=== PATIENT | female | born 1980 | race Caucasian/White ===

== ENCOUNTER → 2017-06-15 12:25 | Outpatient (CLI) | payer OTHER, SELFPAY ==
[2017-06-15 14:30] LABS: M R Staph aureus DNA By PCR Negative (Negative); Probe Check PASS; Specimen Processing Control PASS
== END ==
PROVIDERS: Family Provider Nurse Practitioner; PCP Nurse Practitioner; Visit Provider Nurse Practitioner
DX: S60.511A Abrasion of right hand, initial encounter (principal)
CPT/HCPCS: 87641

== ENCOUNTER → 2017-06-20 09:17 | Outpatient (CLI) | payer OTHER, SELFPAY ==
--- NOTE | 2017-06-20 09:21 | HPBI_ITS ---
MAMMOGRAPHY - BILATERAL DIAGNOSTIC REASON FOR EXAM: Female, 36 years old. Right breast lump at the 12:00 position of the breasts. PERTINENT HISTORY: Non-contributory. TECHNIQUE: Digital bilateral breast kendall (3D mammographic acquisition) in the CC and MLO projections. 2-D mediolateral oblique (MLO) and craniocaudad (CC) views of both breasts were obtained. CAD: Full Field Digital Mammography with Computer Added Detection was performed. COMPARISON: None. Baseline examination. FINDINGS: Breast Composition: The breasts are heterogeneously dense, which may obscure small masses. The palpable abnormality corresponds to a 1.7 cm x 0.9 cm nodular density with calcifications within it. A neoplastic process should be ruled out. Correlation with ultrasound is recommended. No other significant abnormalities are identified. HPBI/DIAG MAMM W/CAD, BILAT IMPRESSION: The palpable lump and a mildly corresponds to a 1.7 cm x 0.9 Dewayne nodule density with calcifications. Ultrasound correlation is recommended. ASSESSMENT CATEGORY: BIRADS Category 0: Incomplete. Need additional imaging evaluation. A letter regarding these results will be sent to the patient by the facility within 30 days. Approximately 10% of breast cancers are not detected by mammography. A normal mammogram should not delay biopsy of a clinically suspicious abnormality. Electronically Signed: Moncho Sandoval MD at 13:39 EST Tel [phone], Service support ,
--- NOTE | 2017-06-20 10:34 | US_ITS ---
STUDY: ULTRASOUND BREAST - RIGHT REASON FOR EXAM: Female, 36 years old. Abnormal screening mammogram. TECHNIQUE: Axial and longitudinal images of the RIGHT breast were performed with a high resolution ultrasound transducer. COMPARISON: Comparison is made with prior mammogram done earlier today. FINDINGS: RIGHT Breast: There is a 7 mm x 8 mm x 7 mm spiculated irregular nodule at the 12:00 breast at 3 cm from the nipple. A biopsy is recommended for further evaluation. There is an 8mm by 8 mm x 5 mm cyst at the 11:00 position breast at 2 cm from nipple. Mild degree of retroareolar ductal dilatation. US/Breast Limited Unilateral IMPRESSION: Suspicious mass at the 12:00 position present 3 cm from nipple as described. A biopsy is recommended. ASSESSMENT CATEGORY: BIRADS Category 5: Highly Suggestive of Malignancy - Appropriate Action Should Be Taken. A letter regarding these results will be sent to the patient by the facility within 30 days. Electronically Signed: Moncho Sandoval MD at 13:48 EST Tel [phone], Service support ,
== END ==
PROVIDERS: Family Provider Nurse Practitioner; PCP Nurse Practitioner; Visit Provider Nurse Practitioner
DX: N63.10 Unspecified lump in the right breast, unspecified quadrant (principal)
CPT/HCPCS: 76642; 77062; 77066; G0279

== ENCOUNTER → 2017-06-25 15:15 | Outpatient (CLI) | payer OTHER, SELFPAY ==
--- NOTE | 2017-06-25 15:16 | CT_ITS ---
STUDY: CT ABDOMEN AND PELVIS WITHOUT CONTRAST REASON FOR EXAM: Female, 36 years old. Left upper quadrant pain RADIATION DOSAGE (If Supplied By Facility): CTDIvol = ( 9.82 ) mGy, DLP = ( 461.03 ) mGycm TECHNIQUE: Transaxial images were obtained from the dome of the diaphragm to the symphysis pubis without oral contrast, and without intravenous contrast. Sagittal and coronal images were reconstructed. Individualized dose optimization techniques were used for this CT. COMPARISON: None. FINDINGS: The visualized lung bases are unremarkable. The visualized portions of the heart are within normal limits. Normal liver. Incompletely contracted thick-walled gallbladder without calcified stones of uncertain significance. If concern for gallbladder disease ultrasound recommended. Normal spleen. Normal pancreas. Normal bilateral adrenal glands. Normal right kidney. Normal left kidney. Normal visualized stomach. Normal small intestine. Diffuse fecal retention noted within the colon.. No evidence for acute appendicitis. Normal abdominal aorta. Normal inferior vena cava. Tiny subcentimeter retroperitoneal nodes likely of no significance. Normal urinary bladder. Minor cystic changes within the adnexa bilaterally not atypical for age Small amount of fluid in the cul-de-sac possibly due to ovulation. Normal abdominal wall. Normal osseous structures. CT/Abdomen/Pelvis without Cont IMPRESSION: Minor cystic changes within the ovaries and fluid in the cul-de-sac likely due to ovulation No significant adenopathy or evidence for splenomegaly. Electronically Signed: Akash Velasquez MD at 20:41 EST , Service support ,
== END ==
PROVIDERS: Family Provider Nurse Practitioner; PCP Nurse Practitioner; Visit Provider Nurse Practitioner
DX: R10.84 Generalized abdominal pain (principal)
CPT/HCPCS: 74176

== ENCOUNTER → 2017-06-27 11:05 | Outpatient (CLI) | payer OTHER, SELFPAY ==
--- NOTE | 2017-06-27 11:10 | US_ITS ---
STUDY: ULTRASOUND BREAST - RIGHT REASON FOR EXAM: Female, 36 years old. Ultrasound guided right breast biopsy. TECHNIQUE: Axial and longitudinal images of the RIGHT breast were performed with a high resolution ultrasound transducer. COMPARISON: Comparison is made with prior sonogram dated June 20, 2017. FINDINGS: RIGHT Breast: The questionable abnormality represents dilated ducts. The biopsy was not performed. US/Breast Limited Unilateral IMPRESSION: The biopsy was not performed. ASSESSMENT CATEGORY: BIRADS Category 2: Benign. A letter regarding these results will be sent to the patient by the facility within 30 days. Electronically Signed: Moncho Sandoval MD at 13:24 EST Tel [phone], Service support ,
== END ==
PROVIDERS: Family Provider Nurse Practitioner; PCP Nurse Practitioner; Visit Provider Surgery
DX: R92.8 Other abnormal and inconclusive findings on diagnostic imaging of breast (principal)
CPT/HCPCS: 76642

== ENCOUNTER → 2017-07-17 12:58 | Outpatient (CLI) | payer OTHER, SELFPAY ==
--- NOTE | 2017-07-17 12:59 | ECHOD_ITS ---
Reason For Study: FATIGUE Procedure This was a 2D Doppler, Color Flow transthoracic echocardiogram. Exam performed in department. Left Ventricle Normal LV size. Left ventricular systolic function is normal. The estimated ejection fraction is 60 %. Normal diastology for age. No regional wall motion abnormalities noted. Right Ventricle Normal RV size. Normal systolic function. Atria Normal left atrium. Normal right atrium. Mitral Valve Normal mitral valve. Tricuspid Valve Normal tricuspid valve. Mild (1+) tricuspid valve insufficiency. Pulmonary artery systolic pressure is 24 mmHg. Aortic Valve Normal aortic valve. Trisinus/trileaflet aortic valve. Pulmonic Valve Normal pulmonic valve. Great Vessels Normal aortic root. The pulmonary artery is normal size. Normal inferior vena cava. Pericardium/Pleural No pericardial effusion. MMode/2D Measurements & Calculations LVIDd: 4.5 cm IVSd: 0.73 cm Ao root diam: 3.1 cm LVIDs: 2.8 cm LVPWd: 0.82 cm LA dimension: 2.5 cm RVDd: 3.5 cm FS: 36.3 % LAV(MOD-bp): 28.0 ml EDV(MOD-sp4): 63.4 ml EDV(MOD-sp2): 105.6 ml LAV(MOD-bp) Indexed: 15.2 ml/m2 ESV(MOD-sp4): 23.1 ml EF(MOD-sp2): 67.7 % LAV(MOD-sp2): 19.9 ml EF(MOD-sp4): 63.5 % LAV(MOD-sp4): 35.0 ml SV(MOD-sp4): 40.2 ml SV(MOD-sp2): 71.5 ml LA A4 area: 14.4 cm2 RA A4 area: 13.3 cm2 Doppler Measurements & Calculations MV E max cayetano: 95.6 cm/sec Ao V2 max: 147.8 cm/sec LV V1 max: 107.1 cm/sec MV A max cyaetano: 43.5 cm/sec Ao max P.7 mmHg LV V1 max P.6 mmHg MV E/A: 2.2 PA V2 max: 106.3 cm/sec TR max cayetano: 222.0 cm/sec TR max P.7 mmHg Interpretation Summary Normal LV size. Left ventricular systolic function is normal. The estimated ejection fraction is 60 %. Normal diastology for age. Structurally normal valves. Ordering Physician: Sammie Chapa Referring Physician: Sammie Chapa Performed By: Breonna Machado, RDCS, RVT
== END ==
PROVIDERS: Family Provider Nurse Practitioner; PCP Nurse Practitioner; Visit Provider Nurse Practitioner
DX: R94.31 Abnormal electrocardiogram [ECG] [EKG] (principal)
CPT/HCPCS: 93306

== ENCOUNTER → 2017-07-20 08:00 | Outpatient (CLI) | payer OTHER, SELFPAY ==
--- NOTE | 2017-07-20 08:03 | US_ITS ---
STUDY: ABDOMINAL ULTRASOUND - RIGHT UPPER QUADRANT REASON FOR VISIT: Female, 37 years old. Six-month history of right upper quadrant pain. TECHNIQUE: Ultrasound evaluation of the right upper quadrant was performed with real-time and static mosley-scale imaging. TECHNICAL QUALITY: Adequate. COMPARISON: None. FINDINGS: Liver: The liver measures 13.5 cm. There is normal echogenicity of the liver. The bile ducts are within normal limits. There is hepatic color flow. The direction of portal flow is hepatopetal. There is no demonstrated mass lesion. Gallbladder: Normal distended gallbladder. The gallbladder wall measures 2.1 mm. There is a negative sonographic Hansen's sign. There is no pericholecystic fluid. There are no gallstones. Common Bile Duct (C.B.D.): The common bile duct measures 4.1 mm. Pancreas: Normal size of the head, body and tail of the pancreas. There is normal echogenicity of the pancreas. There is no demonstrated pancreatic mass or cyst. Right Kidney: Normal size of the right kidney. The right kidney measures 11.4 cm x 5.1 cm x 3.6 cm. Normal renal cortex. The right cortex measures 1.0 cm. There is no demonstrated renal mass or cyst. There is no right hydronephrosis. US/Gallbladder IMPRESSION: Normal right upper quadrant ultrasound examination. Electronically Signed: Moncho Sandoval MD at 13:32 EDT Tel [phone], Service support ,
== END ==
PROVIDERS: Family Provider Nurse Practitioner; PCP Nurse Practitioner; Visit Provider Nurse Practitioner
DX: R10.11 Right upper quadrant pain (principal)
CPT/HCPCS: 76705

== ENCOUNTER → 2017-07-31 09:54 | Outpatient (CLI) | payer OTHER, SELFPAY ==
--- NOTE | 2017-07-31 09:56 | NM_ITS ---
CLINICAL: 37-year-old female with reported history of right upper quadrant abdominal pain and nausea. RADIONUCLIDE HEPATOBILIARY SCINTIGRAPHY COMPARISON: Abdominal ultrasound report 07/20/2016, CT of the abdomen-pelvis report 06/25/2017 FINDINGS: Following the intravenous administration of 5.5 mCi of 99m Tc Mebrofenin, hepatobiliary images reveal: 1. Relatively prompt and homogeneous radiopharmaceutical concentration is noted by a normal sized liver. No parenchymal defects are identified. 2. Gallbladder activity is identified at 15 minutes post radiopharmaceutical administration. 3. Small intestinal tract is observed at 30 minutes following tracer injection. 4. Washout of the radiopharmaceutical by the hepatic parenchyma appears qualitatively normal. Cholecystokinin (0.02 ug/kg) was administered intravenously over a 30-minute period. The post CCK gallbladder ejection fraction calculated at 20 minutes following Cholecystokinin administration was noted to be 79.0 % (normal greater than 35%). During 30 minutes of post CCK imaging, there is no scintigraphic evidence of reflux of the radiotracer into the common hepatic duct or refilling of the gallbladder. NM/Hepatobilliary Imaging IMPRESSION: 1. NORMAL 99m Tc Mebrofenin hepatobiliary imaging examination with Cholecystokinin. A. A gallbladder ejection fraction calculated to be greater than 35% following the administration of Cholecystokinin makes the probability of functional hepatobiliary disease (gallbladder and/or sphincter of Oddi dyskinesia) and/or organic hepatobiliary disease (chronic acalculous cholecystitis and/or cystic duct syndrome) to be low. (Mikel Gutierrez et al, Journal of Nuclear Medicine 32:1695, 1990). Electronically Signed: Eh Doran DO at 10:23 EDT Tel , Service support ,
== END ==
PROVIDERS: Family Provider Nurse Practitioner; PCP Nurse Practitioner; Visit Provider Nurse Practitioner
DX: R10.11 Right upper quadrant pain (principal)
CPT/HCPCS: 78226; A9537; J2805

== ENCOUNTER → 2018-02-20 11:29 | Outpatient (CLI) | payer OTHER, SELFPAY ==
--- NOTE | 2018-02-20 11:35 | CT_ITS ---
STUDY: CT ABDOMEN WITH CONTRAST REASON FOR EXAM: Female, 37 years old. Hepatomegaly. Right upper quadrant and left upper quadrant pain. RADIATION DOSAGE (If Supplied By Facility): CTDIvol = ( 12.63 ) mGy, DLP = ( 476.72 ) mGycm TECHNIQUE: Transaxial images were obtained post I.V. administration of 100 ml of Isovue 300 contrast, and with oral contrast. Sagittal and coronal images were reconstructed. # of Images: 365 Individualized dose optimization techniques were used for this CT. COMPARISON: None. FINDINGS: The visualized lung bases are unremarkable. The visualized portions of the heart are within normal limits. Normal liver. Normal gallbladder and extrahepatic biliary system. Normal spleen. Normal pancreas. Normal bilateral adrenal glands. Normal right kidney. Normal left kidney. Normal visualized stomach. Normal small intestine. Moderate amount of fecal material in the colon. The appendix is visualized and appears normal. Normal abdominal aorta. Normal inferior vena cava. Normal retroperitoneum. Normal abdominal wall. Normal osseous structures. CT/Abdomen WITH IV Contrast IMPRESSION: Moderate amount of fecal material is seen in the colon. Electronically Signed: Moncho Sanodval MD at 14:08 EDT Tel [phone], Service support ,
[2018-02-20 12:07] LABS: Absolute Lymphocyte Count 1.67 X10^3/ul (0.83-4.51); Absolute Neutrophil Count 3.1 X10^3/uL (2.0-7.7); Basophil# 0.02 X10^3/uL; Basophil% 0.4 % (0-1); Eosinophil# 0.13 X10^3/uL; Eosinophils% 2.4 % (0-5); Hemoglobin 13.9 g/dl (12.0-15.0); Lymphocyte # 1.67 X10^3/ul (4.0); Lymphocyte % 30.5 % (19-41); Mean Corp Hgb Conc 33.1 g/gl (32-36); Mean Corpuscular Hgb 31.4 pg (27.0-32.0); Mean Platelet Vol. 11.2 fl (6.2-12.0); Monocyte% 9.1 % (0-10); Neutrophil # 3.14 X10^3/uL (2.7-7.7); Neutrophil % 57.4 % (47-70); Platelet Count 248 K/mm3 (150-450); RBC Distribution Width CV 12.7 % (11.6-14.6); RBC Distribution Width SD 44.1 fl (35.1-43.9); Red Blood Count 4.42 M/mm3 (4.2-5.4); White Blood Count 5.5 K/mm3 (4.4-11.0)
[2018-02-20 12:13] LABS: POSITIVE COUNT NO; POSITIVE DIFFERENTIAL NO; POSITIVE MORPHOLOGY NO
[2018-02-20 12:17] LABS: Erythrocyte Sedimentation Rate 5 mm/hr (0-20)
[2018-02-20 12:35] LABS: ALB/GLOB Ratio 1.2 RATIO (0.9-2.4); AST(SGOT) 10 U/L (15-37); Alanine Aminotransfer ALT/SGPT 19 U/L (13-56); Albumin, Serum 4.1 g/dL (3.2-5.0); Alkaline Phosphatase 57 U/L (45-117); Anion Gap 8 (5-15); BUN 7 mg/dL (7-18); BUN/Creat Ratio 12.1 RATIO (10-20); CRP < 2.90 mg/L (0.0-3.0); Calcium,Total 9.2 mg/dL (8.5-10.1); Chloride 101 mmol/L (98-107); Creatinine, Serum 0.58 mg/dL (0.55-1.02); EST Glomerular Filtration Rate 124 mL/min (>60); Est Glom Filt Rate - Afr Amer 150 mL/min (>60); Globulin 3.4 g/dL (2.2-4.2); Glucose 85 mg/dL (74-106); Potassium 4.6 mmol/L (3.5-5.1); Protein, Total 7.5 g/dL (6.4-8.2); Sodium Level 138 mmol/L (136-145)
[2018-02-21 05:06] LABS: HEPATITIS B SURFACE AG Negative (Negative); Hepatitis A AB, Total Negative (Negative); Hepatitis A IgM Antibody Negative (Negative); Hepatitis B Core AB IgM Negative (Negative); Hepatitis B Core Ab Total Negative (Negative); Hepatitis C Ab <0.1 s/co ratio (0.0-0.9)
[2018-02-21 10:28] LABS: Hep B Surface Antibodies Reactive (.)
== END ==
PROVIDERS: Family Provider Internal Medicine; PCP Internal Medicine; Referring Provider Internal Medicine; Visit Provider Internal Medicine
DX: R16.0 Hepatomegaly, not elsewhere classified (principal); R16.1 Splenomegaly, not elsewhere classified
CPT/HCPCS: 74160; 80053; 85025; 85652; 86140; 86704; 86705; 86706; 86708; 86709; 86803; 87340; Q9967

== ENCOUNTER 2019-05-03 06:50 | Emergency (ER) | payer OTHER, SELFPAY ==
[2019-05-03] VITALS (9 sets, daily range): BP systolic 104–123; BP diastolic 60–79; PULSE 70–97; RESP 12–19; TEMP 36.6; O2SAT 98–100; BMI 29.9
--- NOTE | 2019-05-03 07:10 | ED.DCSUM_ITS ---
History of Present Illness Chief Complaint: Lower Extremity Injury Informant: Patient Onset: Today Mechanism/Context: Fall Quality of Pain: Dull, Aching Location: Left ankle Current Severity: Mild Maximum Severity: Severe Worsened by: Attempt to move ankle Relieved by: Better after immobilization and elevation Associated Symptoms: Loss of function, Inability to ambulate. Negative for: Parasthesias, Weakness, Loss of consciousness Narrative: Patient is a 38-year-old woman who presents with plan inversion mechanism injury and deformity to left ankle. She was placed in a Aircast by paramedics prior to arrival. She denies paresthesia, anesthesia motors. She had alcoholic beverage last evening at 2100. She states she had a sip of water prior to this occurring. She denies head trauma. Denies neck pain. She denies paresthesia, anesthesia motor his upper or lower extremity presently the time of the injury. She denies cardiac respiratory symptoms. Denies GI symptoms. She states she has not seen an orthopedic surgeon in the past. Tetanus Immunization: 5-10 years - Past Medical History (1) No significant past medical history Status: Acute Past Medical History - Allergies and Home Meds Allergies/Adverse Reactions: Allergies sertraline [From Zoloft] Allergy (Mild, Verified 06/22/17 13:08) Unknown Primary Care Physician: Liz Conroy DO [Primary Care Provider] - Prior records reviewed: Yes Lives: Alone Smoking Status: Never smoker Alcohol: Occasional Drugs: None Review of Systems General: Denies: Chills, Fever, Sweats Eyes: Denies: Visual changes - bilaterally, Blurred Vision - bilaterally ENT: Denies: Rhinorrhea, Sore throat Cardiovascular: Denies: Chest pain, Palpitations Respiratory: Denies: Dyspnea, Cough, Dyspnea on exertion Gastrointestinal: Denies: Abdominal pain, Nausea, Vomiting Musculoskeletal: Reports: Swelling, Extremity Pain. Denies: Myalgias, Arthralgias, Neck pain, Back pain Skin: Denies: Rash, Wounds Neurological: Denies: Headache, Weakness, Numbness Hematologic: Denies: Easy bruising, Easy bleeding Allergy: Denies: Uticaria, Swelling of the mouth, Swelling of the tongue Physical Exam Vital Signs/Narrative: Vital Signs Temp Pulse Resp BP Pulse Ox 05/03/19 06:50 97.8 F 85 18 107/68 99 Inital Vital Signs reviewed: Yes General: Well nourished, Well developed Head: Normocephalic, Atraumatic Eyes: Perrl, EOMI. Negative for: Pale conjunctiva, Scleral icterus ENT: TM's clear, No hemotympanum or drainage, No trauma. Negative for: Hemotympanum, Otorrhea, Nasal trauma, Nasal septal hematoma Neck: Nontender, Full ROM. Negative for: Spinal Tenderness Cardiovascular: Regular rate, Regular rhythm, No murmurs, Normal S1, Normal S2 Respiratory: No distress, CTA bilaterally, Chest nontender Abdomen: Soft, Nontender, Nondistended, Normal bowel sounds Back: Nontender. Negative for: CVA Tenderness - Right Extremeties: There is deformity of the left ankle. DP and PT pulses are palpable. There is pain palpation over the lateral and medial malleolus. There is no pain the patient over the proximal tibia or fibular head. There is no pain the patient over the knee. Sensation and motor function are normal. Skin: Normal color, No rash Neurological: Alert, Oriented x3, Cranial nerves II-XII grossly intact, Normal Strength, Normal Sensation Psychological: Normal affect - Glascow Coma Scale Eye Opening: Spontaneous Motor: Obeys Commands Verbal: Oriented Coma Scale Total: 15 Diagnostic/Tx/Re-eval Chest X-Ray - ED: 2 View, Read by ED Physician, - - Subluxation left ankle due to a bimalleolar fracture. 05/03/19 06:56 Ankle min 3 Views [RAD] Stat Postreduction film reveals anatomical reduction. 2 views were obtained. - Medical Decision Making IV was established. Patient initially was administered 4 mg of Zofran. She declined pain medicine. She subsequently is requesting pain medicine. X-ray was ordered to determine extent of injury. Procedures Procedure(s): 1. Deep sedation using propofol. 2. Closed reduction fracture dislocation left ankle. Patient was informed that she has a fracture/dislocation of her left ankle and would require reduction. She was informed that this would best be achieved using IV anesthetic, propofol. She denies allergy to egg products or soy products. She states she was administered propofol when she had a colonoscopy. She has had no prior complications with IV anesthetic. She was given opportunity ask questions. None were asked. She was explained risk benefits using propofol or any IV anesthetic. Procedure time 8 minutes. A total of 150 mg of propofol was administered. The fracture dislocation was reduced by me. Using Ortho-Glass a stirrup/sugar tong and posterior splint was placed. Postreduction x-rays have been ordered. Patient had slight discomfort and required more anesthetic after the reduction. ED Disposition - Plan for ED Patient: Disposition: Home or Assisted Living Diagnosis: Displaced bimalleolar fracture of left lower leg, initial encounter for closed fracture Instructions: FRACTURE, Ankle (General) Prescriptions: Hydrocodone Bitart/Apap 5-325 [Gerber 5MG-325MG] 1 tablet PO Q6H PRN PRN 3 Days #10 tablet PRN Reason: Pain Transmission Status: Received by [id number] Referrals: Liz Conroy DO [Primary Care Provider] - Elie Thompson MD [STAFF PHYSICIAN] - As soon as possible Additional Instructions: Call Dr. Elie Thompson's office to be seen either by Dr. Elie Thompson or counselor aid. You are to put no weight on your left foot. Keep left foot elevated. Elevation means toes above your nose. Apply ice 6-8 times a day 20 to 30 minutes per application.
[2019-05-03] MEDS: Ondansetron 4 MG/2 ML Vial IV (07:12)
[2019-05-03] MEDS: Morphine 4 MG/ML Syringe IV (07:13)
--- NOTE | 2019-05-03 07:15 | RAD_ITS ---
STUDY: X-RAY - LEFT ANKLE REASON FOR EXAM: Female, 38 years old. PAIN, DEFORMITY S/P FALL TECHNIQUE: 3 view(s) of the ankle. COMPARISON: None. FINDINGS: An acute horizontal fracture is present through the origin of the medial malleolus with lateral displacement of the distal fracture fragment by 1.5 cm. An acute oblique fracture of the very distal fibular shaft is also present with displacement of the distal fracture fragment laterally and posterior by 1.23 cm. There is also partial lateral dislocation of the talus in relation to the tibial plafond by 1.34 cm. Normal visualized talus and calcaneus. The visualized subtalar, talonavicular, calcaneocuboid and tarsal articulations are normal. The soft tissues are swollen. RAD/Ankle min 3 Views IMPRESSION: 1. Acute displaced fractures of the medial malleolus and distal fibular shaft. 2. Partial lateral dislocation of the talus in relation to the tibial plafond. Electronically Signed: Finn Fritz MD at 8:24 EST , Service support ,
[2019-05-03] MEDS: Propofol 200 MG/20 ML Vial IV BOLUS (08:33)
--- NOTE | 2019-05-03 08:35 | RAD_ITS ---
STUDY: X-RAY - LEFT ANKLE REASON FOR EXAM: Female, 38 years old. POST REDUCTION TECHNIQUE: 3 view(s) of the ankle. COMPARISON: Initial exam May 03, 2019 at 7:15 FINDINGS: Follow up studies show successful reduction of previously partially dislocated talus. There is now normal alignment at the ankle mortise and syndesmosis. The medial malleolus and distal fibular fracture fragments have also been reduced demonstrating greatly improved alignment. New cast/splint material is also present. RAD/Ankle min 3 Views IMPRESSION: Status post reduction of the distal fibula and medial malleolus fracture fragments and talus Electronically Signed: Finn Fritz MD at 9:03 EST , Service support ,
== END 2019-05-03 09:18 | disposition home or self-care (01) ==
PROVIDERS: Emergency Provider Emergency Medicine; Family Provider Internal Medicine; PCP Internal Medicine
DX: S82.842A Displaced bimalleolar fracture of left lower leg, initial encounter for closed fracture (principal); X50.1XXA Overexertion from prolonged static or awkward postures, initial encounter; Y93.9 Activity, unspecified; Y92.9 Unspecified place or not applicable; Y99.9 Unspecified external cause status; Z79.899 Other long term (current) drug therapy
CPT/HCPCS: 27810; 29515; 73610; 96374; 99285; J7030; A4216; J2405

== ENCOUNTER 2019-05-15 12:21 | Day surgery (SDC) | payer OTHER, SELFPAY ==
[2019-05-03 06:50] VITALS: BMI 29.9
--- NOTE | 2019-05-05 16:50 | RAD_ITS ---
STUDY: X-RAY CHEST REASON FOR EXAM: Female, 38 years old. Preoperative TECHNIQUE: Frontal view of the chest COMPARISON: None. FINDINGS: The lungs are clear. There are no pleural effusions. There is no pneumothorax. The heart is normal in size. The visualized osseous structures are within normal limits. RAD/Chest PA and Lateral IMPRESSION: No acute thoracic pathology. Electronically Signed: Akash Rainey, at 17:14 EST Tel , Service support ,
--- NOTE | 2019-05-05 16:55 | EKG12_ITS ---
Test Reason : PRE-OP Blood Pressure : / mmHG Vent. Rate : 106 BPM Atrial Rate : 106 BPM P-R Int : 120 ms QRS Dur : 076 ms QT Int : 336 ms P-R-T Axes : 070 073 049 degrees QTc Int : 446 ms Sinus tachycardia Possible Left atrial enlargement Borderline ECG Confirmed by TYLER CUEVA, TORI ([id number]), loan expeditor BANDAR MCKEON ([id number]) on 05/08/2019 11:23:14 AM Referred By: Ricky Thompson Confirmed By:TORI SCOTT MD
[2019-05-05 17:32] LABS: Absolute Lymphocyte Count 1.67 X10^3/uL (0.83-4.51); Absolute Neutrophil Count 4.7 X10^3/uL (2.0-7.7); Basophil# 0.03 X10^3/uL; Basophil% 0.4 % (0-1); Eosinophil# 0.16 X10^3/uL; Eosinophils% 2.2 % (0-5); Hematocrit 38.8 % (37-47); Hemoglobin 12.6 g/dL (12.0-15.0); Lymphocyte # 1.67 X10^3/ul (4.0); Lymphocyte % 23.2 % (19-41); Mean Corp Hgb Conc 32.5 g/dL (32-36); Mean Corpuscular Hgb 30.4 pg (27.0-32.0); Mean Corpuscular Volume 93.7 fL (81-99); Mean Platelet Vol. 10.6 fl (6.2-12.0); Monocyte# 0.67 X10^3/uL; Monocyte% 9.3 % (0-10); NRBC Flagged by Analyzer 0 % (0-5); Neutrophil # 4.66 X10^3/uL (2.7-7.7); Neutrophil % 64.6 % (47-70); POSITIVE MORPHOLOGY YES; Platelet Count 277 K/mm3 (150-450); RBC Distribution Width SD 44.1 fl (35.1-43.9); Red Blood Count 4.14 M/mm3 (4.2-5.4); White Blood Count 7.2 K/mm3 (4.4-11.0)
[2019-05-05 17:35] LABS: Prothrombin Time (Protime)PT. 12.8 SECONDS (11.7-14.9)
[2019-05-05 17:36] LABS: Partial Thromboplast Time 25.7 Seconds (24.1-36.2)
[2019-05-05 17:53] LABS: Differential Indicated SCAN CRITERIA MET
[2019-05-05 18:13] LABS: Anion Gap 7 (5-15); BUN 11 mg/dL (7-18); BUN/Creat Ratio 14.5 RATIO (10-20); Calcium,Total 9.1 mg/dL (8.5-10.1); Chloride 106 mmol/L (98-107); Creatinine, Serum 0.76 mg/dL (0.55-1.02); EST Glomerular Filtration Rate 90 mL/min (>60); Est Glom Filt Rate - Afr Amer 109 mL/min (>60); Glucose 103 mg/dL (74-106); Sodium Level 139 mmol/L (136-145)
[2019-05-05 20:01] LABS: Platelet Estimate ADEQUATE (ADEQ); Red Cell Morphology NORM C+C NORMAL (NORM C&C)
[2019-05-15 12:46] VITALS: BP 111/69; PULSE 74; RESP 16; TEMP 36.6; O2SAT 99; BMI 30.7
[2019-05-15 12:50] LABS: Internal QC Validated? YES +Cl - CLEAR BKGD; Pregnancy, Urine Negative Negative
[2019-05-15] MEDS: Lactated Ringers 1,000 ML 100 ML IV ×2 (13:03→15:45)
[2019-05-15] MEDS: Cefazolin 2 GM in 0.9% Normal Saline 100 ML IV (14:32)
[2019-05-15] MEDS: Bupivacaine Mpf 0.5% 30 ML VIAL (14:41)
--- NOTE | 2019-05-15 15:00 | RAD_ITS ---
STUDY: X-RAY - LEFT ANKLE REASON FOR EXAM: Female, 38 years old. ORIF LEFT BIMALLEOLAR FX -- 167.5 SEC OF FLUORO -- 7.12 mGy DOSE TECHNIQUE: 17 intraoperative view(s) of the ankle. COMPARISON: None. FINDINGS: 17 intraoperative films performed as the patient has undergone ORIF of a bimalleolar fracture. Where is intact and free of postoperative complication. Alignment at the fracture sites is anatomic. RAD/Ankle min 3 Views IMPRESSION: Intraoperative films of bimalleolar ORIF. No intraoperative complications. Follow-up recommended to ensure osseous seen in Electronically Signed: Garcia Molina MD at 17:11 EST , Service support ,
[2019-05-15 17:01] VITALS: BP 104/54; BP 111/69; PULSE 88; RESP 16; TEMP 37.2; O2SAT 94
--- NOTE | 2019-05-15 17:12 | DCINST_ITS ---
Discharge Diet: No Restrictions Discharge Activity: May Not Drive, May Not Shower, Use Walker, Use Crutches Weight Bearing Status: No weight bearing Keep extremity elevated above heart level: Left Leg Call your doctor if your incision/area has: Increased Pain/ Swelling Call your doctor if you observe: Fever of 101 or Higher, Shortness of breath, Chest pain, Increased palpitations (irregular heartbeat), Calf discomfort, Uncontrolled pain Cleanse incision/area with: Keep Dressing Clean & Dry Additional Dressing/Incision Instructions:: Keep dressing to left leg clean, dry, intact. Do not get dressing wet. If get dressing wet, call office immediately for dressing change. Elevate left foot above the level of the heart at all times. Ice behind left knee 20 minutes on, 20 minutes off every hour while awake until follow-up appointment. No walking or standing on left foot. Use crutches or walker for assistance. Begin taking doxycycline and aspirin on May 16, 2019 as instructed. Begin taking Percocet at night of May 15, 2019. After first dose of Percocet, wait 3 hours and take ibuprofen 800 mg. After first dose of ibuprofen, wait another 3 hours to take another dose of Percocet. Alternate between these medications every 3 hours as needed Allergies/Adverse Reactions: Allergies sertraline [From Zoloft] Allergy (Mild, Verified 05/15/19 12:30) Unknown Medications to take at Discharge Duloxetine Hcl [Cymbalta] 30 mg PO DAILY 05/03/19 Naltrexone HCl 25 mg PO BID 05/03/19 Spironolactone 50 mg PO DAILY 05/03/19 Oxycodone HCl/Acetaminophen [Percocet 5-325 mg Tablet] 1 ea PO Q4H PRN PRN 05/08/19 Ropinirole HCl [Requip] 0.5 tab PO QHS 05/08/19 Primary Care Physician: Liz Conroy DO [Primary Care Provider] - Test Results: Test results from this visit will be discussed in further detail at your follow- up appointment, if applicable. Please Follow Up With: Ricky Thompson DPM When: 1 week Proposed Discharge Date: 05/15/19
[2019-05-15 17:15] VITALS: BP 107/67; BP 111/69; PULSE 86; RESP 16; O2SAT 95
--- NOTE | 2019-05-15 17:15 | PCM.OPRPT ---
Problem List (1) Closed bimalleolar fracture of left ankle Status: Acute Qualifiers: Encounter type: subsequent encounter Fracture healing: with routine healing Qualified Code(s): S82.842D - Displaced bimalleolar fracture of left lower leg, subsequent encounter for closed fracture with routine healing (2) Dislocation of left ankle joint Status: Acute Qualifiers: Encounter type: subsequent encounter Qualified Code(s): S93.05XD - Dislocation of left ankle joint, subsequent encounter Report of Operation Date of Procedure: 05/15/19 Pre-Operative Diagnosis: 1. left ankle bimalleolar fracture, closed. #2 left ankle joint dislocation Post-Operative Diagnosis: Same as preoperative Surgery/Procedure Performed:: 1. Open reduction with internal fixation of left lateral malleolus. #2 open reduction with internal fixation of the left medial malleolus #3 reduction of ankle joint dislocation Description of Surgical Findings:: Consistent with diagnosis. Reduction of deformities achieved and held with internal fixation. radiation control technician: Annamarie Roman Type of Anesthesia:: General/Supplemental - with popliteal/saphenous block to left lower extremity Anesthesiologist: Adrian Dooley Special Medications: 2 g of Ancef given preoperatively Specimen's removed: None Drains: None Estimated Blood Loss (mL): 10 Description of Procedure: Pathology: None Anesthesia: General with a popliteal and saphenous block to the left lower extremity Hemostasis: Pneumatic thigh tourniquet placed to level left thigh at 300 mmHg for 90 minutes Estimated blood loss: Less than 10 mL Materials: #1 Maximo distal lateral fibula plate 4-hole. #2 [place] 4.0 x 40 mm partially-threaded screw. #3 [place] 4.0 x 46 mm partially-threaded screw. #4 [place] 3.5 x 12 mm locking screw #5 Maximo 3.5 x 14 mm locking screw x2. #6 [place] 3.5 x 12 mm nonlocking screw x2. #7 Maximo 3.5 x 14 mm nonlocking screw #8 Maximo 2.7 x 18 mm nonlocking screw #9 Maximo 2.7 x 22 mm nonlocking screw. #10 size 0 Vicryl. #11 size 2-0 Vicryl. #12 size 3-0 Vicryl. #13 size 3-0 nylon Injectables: None Complications: None Condition: stable Indications: Patient is a 38-year-old female who suffered a slip and fall while at home on May 03, 2019. Patient noticed immediate pain and deformity of her left ankle. Patient reported to the emergency department for further evaluation. At that time, she was diagnosed with an ankle fracture after x-rays were reviewed. She was closed reduced and was splinted. She was instructed to remain nonweightbearing and was sent for follow-up. Patient subsequently saw me in the office on May 05. At that time, the posterior splint was removed and revealed significant edema of the left foot and ankle. Furthermore, a lesion on the posterior aspect of the Achilles tendon of the left ankle and on the lateral aspect of the left calf were present. Upon verbal questioning, patient states that these were scratches from after her fall. I discussed with the patient conservative and surgical interventions. Due to her deformity of her left ankle and her activities of daily living, I recommended surgical intervention for a faster return to healing. Patient was agreeable to surgical intervention. I instructed the patient that we would have to wait at least 1 week to allow the swelling to decrease in her left ankle and for the lesions that were present to heal. Patient was instructed on strict nonweightbearing, ice, and elevation. Patient return to my office on May 12 for an edema check. There was a significant reduction in edema noted of her left ankle and skin lines were present. Furthermore, the lesions were noted to show good signs of healing. It was then determined the time the surgical dimension will be performed on May 15, 2019. Operative report: Before the patient was brought to the operating room, the risks, benefits, possible outcomes, possible complications of the procedure discussed with the patient. All the patient questions were answered to her satisfaction and all of her concerns were addressed. No guarantees were made as to the outcome of the procedure. The patient understood all aspects of the procedure, and consent was then signed by the patient. Before the patient was brought to the operating room, the anesthesiology team administered a popliteal and saphenous block to the left lower extremity. Patient was then brought into the operating room and placed on the operating table in supine position. After timeout, general anesthesia was obtained by the anesthesiologist and the airway was controlled by the anesthesiologist. A well-padded pneumatic thigh tourniquet was placed at the level of the left thigh. The left foot, ankle, leg were then scrubbed, prepped, draped in the usual sterile manner. Radiographic evaluation was performed of the left ankle to determine the level of the distal tip of the lateral malleolus, the level of the fracture of the lateral malleolus, distal tip of the medial malleolus, and level of the medial malleolar fracture. These were then marked on the patient. Next, the left lower extremity was elevated and exsanguinated via Esmarch and inflation pneumatic thigh tourniquet was performed to 300 mmHg. Attention was then turned to the lateral aspect of the lateral malleolus of the left ankle. At this time, #15 blade was used to perform an incision starting the distal tip of the lateral malleolus extending distally to the lateral aspect of the distal one third of the fibular shaft. This incision was deepened utilizing sharp and blunt dissection. Care was taken to retract all vital neural and vascular structures. All bleeders were cauterized and ligated as necessary. Next a linear periosteal capsular incision was made in line with the original skin incision. The periosteal and capsular structures were then reflected anteriorly and posteriorly, thus exposing the fibula and the fracture fragments of the operative site. At this time, a curette was used to remove any fibrous tissue contained within the fracture fragment site. The surgical site was then irrigated with copious amounts normal sterile saline. Next, the fracture fragments were reduced via temporary fixation. Radiographic evaluation was then performed and the fibula was noted to be out to length. Furthermore, the fibula was noted to be reduced back into anatomical position. Due to the length of the fracture, it was determined that 2 interfragmentary screws would assist in reducing this fracture. At this time, a Maximo 2.7 nonlocking screw was placed from an anterior superior to inferior posterior angle across the fracture fragment of the lateral malleolus. Care was taken to make sure that the screw was as perpendicular to the fracture site as possible. This screw was inserted in standard AO fixation. Of note during insertion of the screw was adequate compression of the fracture fragments. Furthermore, no shifting any of the fragments occurred during insertion of the screw. Once the screw was fully inserted, it was determined that a second interfragmentary screw would help stabilize this fracture. The second interfragmentary screw was placed just distal to the first in a similar angle and similar fashion to that of the first screw. This screw was noted to aid the first interfragmentary screw and reduction of the fracture. Once both screws were fully inserted, all temporary fixation was then removed. Radiographic evaluation was then performed. The interfragmentary screws noted to hold the fibula in the corrected reduced position. Furthermore, the fibula was noted to be out the length. At this time, the Maximo lateral distal 4 hole fibular plate was placed over the lateral aspect of the fibula and held via temporary fixation. Radiograph evaluation was then performed until adequate position was obtained of the plate. Once this was obtained, this was held via a mixture of nonlocking and locking screws. Of note during insertion of the screws was adequate compression of the plate to the bone. Furthermore, no shifting any of the fragments occurred during insertion of the screws. Once 3 screws proximal to the fracture and 3 screws distal to the fracture were fixed into the plate, radiographic evaluation was then performed. The plate was noted to aid the interfragmentary screws and holding the fibula in the correct the reduced position. At this time the surgical site was then irrigated with copious amounts of normal sterile saline. The periosteal and capsular structures were reapproximated coapted utilizing size 0 Vicryl. Subcutaneous tissue was reapproximated and coapted utilizing size 2-0 Vicryl. The skin was reapproximated coapted utilizing size 3-0 nylon in a horizontal mattress and simple interrupted fashion. Attention was then directed to the medial malleolus of the left ankle. At this time, a #15 blade was used to perform a curvilinear incision starting on the medial aspect of the midportion of the medial malleolus extending distally and anteriorly to the distal tip of the medial malleolus. This incision was deepened utilizing sharp and blunt dissection. Care was taken to retract all vital neural and vascular structures. All bleeders were cauterized and ligated as necessary. At this time, the medial malleolar fracture was reduced and held via temporary fixation. Radiograph evaluation was then performed and the medial malleolus was noted to be back into anatomic position. Next, the K wire for the 4.0 screw was placed from the inferior aspect of the medial malleolus extending distally and laterally into the midportion of the tibia. Radiograph evaluation was then performed and this K wire was noted to be held within the medullary canal of the medial malleolus and tibia. Next,, a second K wire was placed parallel to this just anterior to this first K wire. These K wire was then measured, and [place] 4.0 partially-threaded screws were placed over each K wire in standard AO fixation. Of note during insertion of the screws with adequate compression of the medial malleolus fracture. Furthermore, no shifting any of the fragments occurred during insertion of the screws. Once the screws were fully inserted, all K wires and temporary fixation was then removed to the medial malleolus. Radiograph evaluation was then performed. The medial malleolus screws noted to hold the medial malleolus in the correct the reduced position. The surgical site was then irrigated with copious amounts normal sterile saline. The periosteal capsular structures were reapproximated and coapted utilizing 2-0 Vicryl. The subcutaneous tissue was reapproximated and coapted utilizing 3-0 Vicryl. The skin was reapproximated and coapted utilizing 3-0 nylon in a simple interrupted horizontal mattress fashion. At this time, the pneumatic thigh tourniquet was then released and a prompt hyperemic response noted to the entirety of the left lower extremity. At this time, the lesions that were noted on the posterior aspect of the left Achilles and on the lateral aspect of the left calf were dressed with Xeroform. The surgical sites were then dressed with Betadine soaked gauze, and a dry sterile dressing consisting of 4 x 4 gauze wrapped with Kerlix. The left foot and ankle were then wrapped in Andreas bandage. Next a stockinette was placed of the left lower extremity for the metatarsal heads extending to the tibial tuberosity. Cast padding was wrapped from the metatarsal heads extending proximally to level just distal to the tibial tuberosity. A posterior splint was fashioned to the left lower extremity and was adhered to the left lower extremity utilizing Andreas bandages. Care was taken make sure that the foot and ankle held in neutral position as the posterior splint dried. The patient tolerated the anesthesia of the procedure well and was transported to the PACU with vital signs stable and neurovascular status intact to the left lower extremity. After a period of postoperative monitoring, patient will be discharged home with written and oral instructions for wound care and follow-up. The surgical tech, the nurse practitioner, was utilized throughout the entire procedure. She helped with patient positioning, holding of limb, holding of retractors. She helped with exposure throughout. She helped with wound closure, bandage application, and cast application. Without the surgical tech, surgical time would have been increased. Surgical outcome could have been less optimal. - Admit VTE Documentation VTE Present on Admission: No
--- NOTE | 2019-05-15 17:20 | RAD_ITS ---
STUDY: X-RAY - LEFT ANKLE REASON FOR EXAM: Female, 38 years old. POST OP LEFT ORIF TECHNIQUE: 3 view(s) of the ankle. COMPARISON: None. FINDINGS: No acute fracture or dislocation. Compression plate and screws seen across the distal fibula. 2. Screws are seen through the medial malleolus fracture. Fractures are in anatomic alignment and position. Normal ankle mortise. Normal visualized talus and calcaneus. The visualized subtalar, talonavicular, calcaneocuboid and tarsal articulations are normal. The soft tissue structures are unremarkable. RAD/Ankle min 3 Views IMPRESSION: Status post ORIF distal fibular and and medial malleolar fractures which are in anatomic alignment and position. Electronically Signed: Jonas Steward MD at 17:50 EST , Service support ,
[2019-05-15 17:31] VITALS: BP 108/69; BP 111/69; PULSE 97; RESP 18; TEMP 36.8; O2SAT 100
[2019-05-15] MEDS: Ibuprofen 400 MG Tablet 800 MG PO (17:52)
[2019-05-15] MEDS: HYDROcodone Bitartrate/Apap 5/325 Tablet PO (18:46)
[2019-05-15 19:14] VITALS: BP 103/73; BP 111/69; PULSE 82; RESP 18; TEMP 36.4; O2SAT 100
== END 2019-05-15 19:35 | disposition home or self-care (01) ==
LOC: SDC 12:23 → AC 12:24
PROVIDERS: Anesthesiology; Family Provider Internal Medicine; PCP Internal Medicine; Referring Provider Podiatrist Foot & Ankle Surgery; Visit Provider Podiatrist Foot & Ankle Surgery
DX: S82.842D Displaced bimalleolar fracture of left lower leg, subsequent encounter for closed fracture with routine healing (principal); S93.05XD Dislocation of left ankle joint, subsequent encounter; S93.492D Sprain of other ligament of left ankle, subsequent encounter; W01.0XXD Fall on same level from slipping, tripping and stumbling without subsequent striking against object, subsequent encounter; M79.7 Fibromyalgia; F32.9 Major depressive disorder, single episode, unspecified
CPT/HCPCS: 27814; 36415; 71046; 73610; 76000; 80048; 81025; 85025; 85610; 85730; 93005; C1713; J7120; J2405

== ENCOUNTER → 2020-09-01 15:20 | Outpatient (CLI) | payer OTHER, SELFPAY ==
[2020-09-01 14:44] VITALS: BMI 32.8
[2020-09-01 16:36] LABS: HIV - WCH Non-Reactive (Nonreactive); Syphilis Antibodies Non-reactive
[2020-09-03 20:08] LABS: HCV Quant. RNA PCR HCV Not Detected IU/mL (.)
[2020-09-03 20:24] LABS: HSV 1 IgG < 0.91 index (0.00-0.90); HSV 2 IgG < 0.91 index (0.00-0.90)
[2020-09-04 04:09] LABS: Chlamydia By Nucleic Acid AMP Negative (Negative)
[2020-09-04 07:25] LABS: Gonococcus By Nucleic Acid AMP Negative (Negative)
[2020-09-07 10:45] LABS: HPV APTIMA, High Risk Negative (Negative)
== END ==
PROVIDERS: PCP Nurse Practitioner; Referring Provider Nurse Practitioner Women's Health; Visit Provider Nurse Practitioner Women's Health
DX: Z12.4 Encounter for screening for malignant neoplasm of cervix (principal); Z11.3 Encounter for screening for infections with a predominantly sexual mode of transmission
CPT/HCPCS: 36415; 86695; 86696; 86703; 86780; 87491; 87522; 87591; 87624; 88175; G0145

== ENCOUNTER → 2020-12-14 15:46 | Outpatient (CLI) | payer OTHER, SELFPAY ==
[2020-09-01 14:44] VITALS: BMI 32.8
--- NOTE | 2020-12-14 15:47 | BI_ITS ---
MAMMOGRAPHY - BILATERAL SCREENING REASON FOR EXAM: Female, 40 years old. Routine annual screening examination. PERTINENT HISTORY: Non-contributory. Prior right breast biopsy. TECHNIQUE: Digital bilateral breast yordy (3D mammographic acquisition) in the CC and MLO projections. 2-D mediolateral oblique (MLO) and craniocaudad (CC) views of both breasts were obtained. CAD: Full Field Digital Mammography with Computer Added Detection was performed. COMPARISON: Comparison is made with mammogram dated 06/20/2017. FINDINGS: Breast Composition: The breasts are heterogeneously dense, which may obscure small masses. There are no dominant masses or suspicious calcifications. A tissue clip marker is seen in the anterior slightly upper lateral portion of the right breast and compared with prior biopsy. There is a 3.6 mm x 2.6 mm well-defined nodule in the central lateral aspect of the right breast. No other significant abnormalities are identified. There has been no significant change since the prior study. BI/SCRN MAMM (CAD)W/YORDY BILAT IMPRESSION: Stable bilateral screening mammogram. Yearly follow-up mammogram recommended. (A) ASSESSMENT CATEGORY: BIRADS Category 2: Benign. A letter regarding these results will be sent to the patient by the facility within 30 days. Approximately 10% of breast cancers are not detected by mammography. A normal mammogram should not delay biopsy of a clinically suspicious abnormality. [id number] Electronically Signed: Moncho Sandoval MD at 8:16 EDT , Service support ,
== END ==
PROVIDERS: PCP Nurse Practitioner; Referring Provider Nurse Practitioner Women's Health; Visit Provider Nurse Practitioner Women's Health
DX: Z12.31 Encounter for screening mammogram for malignant neoplasm of breast (principal)
CPT/HCPCS: 77063; 77067

== ENCOUNTER 2021-11-20 09:53 | Emergency (ER) | payer BC, SELFPAY ==
[2021-11-20 09:54] VITALS: BP 113/79; PULSE 88; RESP 14; TEMP 37; O2SAT 98; BMI 35.5
--- NOTE | 2021-11-20 10:10 | ED.RN ---
PT STATES PICC LINE WOULD NOT FLUSH MECHANICAL APPRENTICE. THIS RN WAS SUCCESSFULLY ABLE TO FLUSH BOTH LINES WITH NO TROUBLE AND THERE WAS BLOOD RETURN
--- NOTE | 2021-11-20 10:35 | EX.ED.DYSGE1 ---
HPI History of Present Illness Chief Complaint: General Illness Onset/Context/Timing Onset: Today Current Severity: Mild Maximum Severity: Mild Narrative Narrative: 41-year-old female diagnosed with Lyme disease. Had a PICC line placed in her right arm on Sunday at [facility]. She does home infusions. When she tried it do her infusion it would not go through she thought there was backflow of blood. She came in to have it evaluated. Prior similar symptoms: No Recent Illness/Hospitalization: No PFSH PFS Medical History abdominal pain Anxiety Breast mass, right Depression Fibromyalgia Hx of abnormal cervical Pap smear IBS (irritable bowel syndrome) Migraines Migraines Home Medications ropinirole 0.25 mg tablet 0.5 tab PO QHS restless legs 05/08/19 [History Last Taken Unknown] cholecalciferol (vitamin D3) 50 mcg (2,000 unit) capsule 50 mcg PO DAILY 09/01/20 [History Last Taken Unknown] levonorgestrel 0.15 mg-ethinyl estradiol 0.03 mg tablet 1 tab PO DAILY #28 tabs 09/01/20 [Rx Last Taken Unknown] budesonide 32 mcg/actuation nasal spray 1 spray intranasal DAILY 04/07/21 [History Last Taken Unknown] magnesium 200 mg tablet 100 mg PO DAILY 04/07/21 [History Last Taken Unknown] multivitamin 1 tab PO DAILY 04/07/21 [History Last Taken Unknown] naltrexone 50 mg tablet 4.5 mg PO DAILY 04/07/21 [History Last Taken Unknown] spironolactone 25 mg tablet (Aldactone) 25 mg PO DAILY 04/07/21 [History Last Taken Unknown] carisoprodol 350 mg tablet 350 mg PO QHS 06/27/21 [History Last Taken Unknown] duloxetine 30 mg capsule,delayed release 30 mg PO DAILY fibromyalgia 06/27/21 [History Last Taken Unknown] ondansetron HCl 4 mg tablet 4 mg PO TID PRN nausea and vomiting #90 tabs 06/27/21 [Rx Last Taken Unknown] topiramate 25 mg tablet 25 mg PO QHS 30 days #30 tabs 06/27/21 [Rx Last Taken Unknown] ubrogepant 100 mg tablet (Ubrelvy) 100 mg PO DAILY PRN headache #10 tabs 06/27/21 [Rx Last Taken Unknown] Allergy/AdvReac Type Severity Reaction Status Date / Time sertraline [From Zoloft] Allergy Unknown Unknown Verified 11/20/21 09:56 Surgical History H/O eye surgery H/O wisdom tooth extraction History of ankle surgery Social History adopted: Yes household members: none number of children: 0 current occupational status: employed current occupation: [employer] history of recent travel: No sexually active: Yes Smoking Status: Never smoker Electronic Cigarette Use: not used second hand exposure: No alcohol intake: current alcohol intake frequency: a few times a month substance use type: does not use diet: gluten free and lactose free what type of physical activity do you participate in: walking and yoga seatbelt use: always do you feel safe at home: Yes additional social history: single ROS ROS ED ROS Narrative Denies. Review of Systems ROS Unobtainable: Denies due to encephalopathy Constitutional Constitutional ED: Denies chills Eyes Eyes: Denies blurry vision ENT ENT ED: Denies ear pain Cardiovascular Cardiovascular: Denies chest pain Respiratory/Chest Respiratory/Chest: Denies cough Gastrointestinal Gastrointestinal: Reports diarrhea; Denies abdominal pain Genitourinary Genitourinary ED: Denies dysuria Musculoskeletal Musculoskeletal: Denies arthralgias Integumentary Denies abscess Neurologic Neurologic: Denies headache(s) Psychiatric Psychiatric: Denies anxiety Endocrine Endocrinology: Denies cold intolerance Hematologic/Lymphatic Hematologic/Lymphatic: Reports none Allergic/Immunologic Allergic/Immunologic ED: Denies mouth swelling or tongue swelling EXAM Physical Exam Narrative Exam Narrative: 41-year-old female no acute distress. Exam benign. Right arm PICC line. No swelling. Nurse was able to flush the PICC line. No axillary lymphadenopathy. Right hand neurovascularly intact with normal radial pulse and operating room manager strength. Otherwise exam normal. Const Vital Signs: 11/20/21 09:54 Temperature 98.6 F Temperature Source Temporal Pulse Rate 88 Respiratory Rate 14 Blood Pressure 113/79 Blood Pressure Mean 90 Pulse Ox 98 Oxygen Delivery Method Room Air Positive well nourished and well developed; Negative for cachectic, contractures or unkempt General Appearance ED: well developed; Negative for unkempt, cachectic or contractures Nutritional Appearance: Negative for cachectic HEENT Reports moist mucous membranes Negative for trauma or tenderness Eyes PERRL and EOMs intact bilaterally General Eye ED: Negative for pale conjunctiva or scleral icterus Neck no lymphadenopathy, supple and no JVD Lymph Lymphatic: Negative for other Chest Wall inspection of chest normal and palpation of chest normal Resp normal respiratory effort and clear to auscultation bilaterally Effort and Inspection: Negative for retractions Auscultation: Negative for rales, rhonchi or wheezes Cardio regular rate, regular rhythm, S1 normal heart sound, S2 normal heart sound and no murmurs GI normal to inspection, nondistended, normoactive bowel sounds, non-tender, non-distended and no masses Inspection: Negative for abdominal distention Auscultation: normoactive bowel sounds Palpation: soft; Negative for tender Extremity normal to inspection Extremity Narrative: Right arm PICC line. No swelling. No edema. No ice or lymphadenopathy. Right hand is neurovascularly intact. Neuro oriented x3 Sensorium / Orientation: alert Motor Exam: strength 5/5 throughout Psych Appearance: Negative for unkempt Attitude: No agitated Mood & Affect: Negative for depressed Skin no rashes or lesions noted and no wounds MDM MDM MDM Narrative Medical decision making narrative: Patient with an occluded PICC line at home that the nurses were able to flush here. She will be discharged home. She needs no testing. Discharge Plan Triage Chief Complaint: General Illness ED Provider: Francis Long Dx/Rx/DC Orders Clinical Impression: Occluded PICC line, History of Lyme disease Prescriptions: No Action cholecalciferol (vitamin D3) 50 mcg (2,000 unit) capsule 50 mcg PO DAILY levonorgestrel-ethinyl estrad 0.15-0.03 mg tablet 1 tab PO DAILY Qty: 28 3RF budesonide 32 mcg/actuation spray,non-aerosol 1 spray intranasal DAILY spironolactone [Aldactone] 25 mg tablet 25 mg PO DAILY naltrexone 50 mg tablet 4.5 mg PO DAILY magnesium 200 mg tablet 100 mg PO DAILY multivitamin Tablet 1 tab PO DAILY ondansetron HCl 4 mg tablet 4 mg PO TID PRN (Reason: nausea and vomiting) Qty: 90 4RF Ubrelvy 100 mg tablet 100 mg PO DAILY PRN (Reason: headache) Qty: 10 4RF duloxetine 30 mg capsule,delayed release(DR/EC) 30 mg PO DAILY topiramate 25 mg tablet 25 mg PO QHS 30 Days Qty: 30 4RF carisoprodol 350 mg tablet 350 mg PO QHS ropinirole 0.25 MG tablet 0.5 tab PO QHS Primary Care Provider: Sammie Chapa NP Referrals: Sammie Chapa NP, NEUROPHYSIOLOGICAL TECHNICIAN-C [Primary Care Provider] - Activity Restrictions/Additional Instructions: Follow-up with your primary care provider as needed. Further PICC line problems follow-up with all movement was placed for return. Disposition Disposition: Home, Self Care
== END 2021-11-20 10:56 | disposition home or self-care (01) ==
LOC: ED 10:52
PROVIDERS: Emergency Provider Emergency Medicine; PCP Internal Medicine; Visit Provider Emergency Medicine
DX: T82.594A Other mechanical complication of infusion catheter, initial encounter (principal); A69.20 Lyme disease, unspecified; F41.9 Anxiety disorder, unspecified; F32.A Depression, unspecified
CPT/HCPCS: 99282; A4216

== ENCOUNTER → 2022-01-23 | Outpatient (CLI) | payer BC, SELFPAY | END | disposition home or self-care (01) | LOC: MEDOUTP 12:22 | PROVIDERS: PCP Internal Medicine; Referring Provider Nurse Practitioner Family; Visit Provider Nurse Practitioner Family | DX: Z45.2 Encounter for adjustment and management of vascular access device (principal); A69.8 Other specified spirochetal infections | CPT/HCPCS: A4216 ==

== ENCOUNTER → 2022-01-31 | Outpatient (CLI) | payer BC, SELFPAY ==
[2022-01-31 08:53] LABS: Hematocrit 39.3 % (37-47); Hemoglobin 13.5 g/dL (12.0-15.0); Mean Corp Hgb Conc 34.4 g/dL (32-36); Mean Corpuscular Hgb 32.1 pg (27.0-32.0); Mean Corpuscular Volume 93.6 fL (81-99); Mean Platelet Vol. 10.1 fl (6.2-12.0); Platelet Count 234 K/mm3 (150-450); RBC Distribution Width CV 12.6 % (11.6-14.6); White Blood Count 5.3 K/mm3 (4.4-11.0)
[2022-01-31 09:07] LABS: ALB/GLOB Ratio 0.9 RATIO (0.9-2.4); AST(SGOT) 39 U/L (15-37); Alanine Aminotransfer ALT/SGPT 66 U/L (13-56); Albumin, Serum 3.2 g/dL (3.2-5.0); Alkaline Phosphatase 60 U/L (45-117); Anion Gap 8 (5-15); BUN 10 mg/dL (7-18); BUN/Creat Ratio 16.2 RATIO (10-20); Calcium,Total 8.9 mg/dL (8.5-10.1); Chloride 105 mmol/L (98-107); Creatinine, Serum 0.62 mg/dL (0.55-1.02); EST Glomerular Filtration Rate 113 mL/min (>60); Est Glom Filt Rate - Afr Amer 136 mL/min (>60); Globulin 3.7 g/dL (2.2-4.2); Glucose 150 mg/dL (74-106); Potassium 3.8 mmol/L (3.5-5.1); Protein, Total 6.9 g/dL (6.4-8.2); Sodium Level 140 mmol/L (136-145)
[2022-01-31 16:49] LABS: Xtra Tube EP Lab EXTRA TUBE
== END | disposition home or self-care (01) ==
LOC: MEDOUTP 08:01
PROVIDERS: PCP Internal Medicine; Referring Provider Nurse Practitioner Family; Visit Provider Nurse Practitioner Family
DX: Z45.2 Encounter for adjustment and management of vascular access device (principal); A69.8 Other specified spirochetal infections
CPT/HCPCS: 36592; 80053; 85027; A4216

== ENCOUNTER → 2022-02-07 | Outpatient (CLI) | payer BC, SELFPAY | END | disposition home or self-care (01) | LOC: MEDOUTP 08:00 | PROVIDERS: PCP Internal Medicine; Referring Provider Nurse Practitioner Family; Visit Provider Nurse Practitioner Family | DX: A69.8 Other specified spirochetal infections (principal) ==

== ENCOUNTER → 2022-02-14 | Outpatient (CLI) | payer BC, SELFPAY ==
[2022-02-14 08:56] LABS: Hemoglobin 13.2 g/dL (12.0-15.0); Mean Corpuscular Hgb 30.8 pg (27.0-32.0); Mean Corpuscular Volume 93.2 fL (81-99); Mean Platelet Vol. 10.3 fl (6.2-12.0); Platelet Count 280 K/mm3 (150-450); RBC Distribution Width CV 12.7 % (11.6-14.6); RBC Distribution Width SD 43.6 fl (35.1-43.9); Red Blood Count 4.29 M/mm3 (4.2-5.4); White Blood Count 7.2 K/mm3 (4.4-11.0)
[2022-02-14 09:11] LABS: ALB/GLOB Ratio 0.8 RATIO (0.9-2.4); AST(SGOT) 23 U/L (15-37); Alanine Aminotransfer ALT/SGPT 44 U/L (13-56); Albumin, Serum 3.2 g/dL (3.2-5.0); Alkaline Phosphatase 70 U/L (45-117); Anion Gap 5 (5-15); BUN 16 mg/dL (7-18); BUN/Creat Ratio 30.4 RATIO (10-20); Calcium,Total 8.8 mg/dL (8.5-10.1); Chloride 105 mmol/L (98-107); Creatinine, Serum 0.53 mg/dL (0.55-1.02); EST Glomerular Filtration Rate 135 mL/min (>60); Est Glom Filt Rate - Afr Amer 163 mL/min (>60); Globulin 3.9 g/dL (2.2-4.2); Glucose 103 mg/dL (74-106); Potassium 4.6 mmol/L (3.5-5.1); Protein, Total 7.1 g/dL (6.4-8.2); Sodium Level 137 mmol/L (136-145)
== END | disposition home or self-care (01) ==
LOC: MEDOUTP 08:18
PROVIDERS: PCP Internal Medicine; Referring Provider Nurse Practitioner Family; Visit Provider Nurse Practitioner Family
DX: A69.8 Other specified spirochetal infections (principal); Z45.2 Encounter for adjustment and management of vascular access device
CPT/HCPCS: 80053; 85027; A4216

== ENCOUNTER → 2022-02-18 | Outpatient (CLI) | payer BC, SELFPAY ==
--- NOTE | 2022-02-18 13:00 | RAD_ITS ---
STUDY: X-RAY CHEST REASON FOR EXAM: Female, 41 years old. PICC LINE PLACEMENT TECHNIQUE: PA and lateral views of the chest. COMPARISON: May 05, 2019 FINDINGS: Right side PICC line tip terminates in the distal SVC. The lungs are clear and expanded. There is no demonstrated pleural abnormality. Normal size heart. Normal mediastinum and dorothy. Normal visualized pulmonary arteries. Normal visualized aortic arch and descending thoracic aorta. Normal visualized thoracic spine. Normal visualized ribs, clavicles, and shoulders. There is no demonstrated abnormality of the visualized soft tissue structures of the upper abdomen. RAD/Chest PA and Lateral IMPRESSION: Normal x-ray examination of the chest. Electronically Signed: Finn Fritz MD at 13:51 EDT ,
== END | disposition home or self-care (01) ==
LOC: RAD 12:56
PROVIDERS: PCP Internal Medicine; Visit Provider Nurse Practitioner Family
DX: A69.8 Other specified spirochetal infections (principal)
CPT/HCPCS: 71046

== ENCOUNTER → 2022-02-28 | Outpatient (CLI) | payer BC, SELFPAY ==
[2022-02-28 08:53] LABS: Hematocrit 39.1 % (37-47); Hemoglobin 13.4 g/dL (12.0-15.0); Mean Corp Hgb Conc 34.3 g/dL (32-36); Mean Corpuscular Hgb 32.1 pg (27.0-32.0); Mean Corpuscular Volume 93.5 fL (81-99); Mean Platelet Vol. 10.5 fl (6.2-12.0); Platelet Count 213 K/mm3 (150-450); RBC Distribution Width CV 12.9 % (11.6-14.6); Red Blood Count 4.18 M/mm3 (4.2-5.4); White Blood Count 7.9 K/mm3 (4.4-11.0)
[2022-02-28 09:09] LABS: ALB/GLOB Ratio 0.9 RATIO (0.9-2.4); AST(SGOT) 27 U/L (15-37); Alanine Aminotransfer ALT/SGPT 38 U/L (13-56); Albumin, Serum 3.4 g/dL (3.2-5.0); Alkaline Phosphatase 71 U/L (45-117); Anion Gap 4 (5-15); BUN 15 mg/dL (7-18); BUN/Creat Ratio 25.6 RATIO (10-20); Calcium,Total 9.3 mg/dL (8.5-10.1); Chloride 104 mmol/L (98-107); Creatinine, Serum 0.58 mg/dL (0.55-1.02); EST Glomerular Filtration Rate 120 mL/min (>60); Est Glom Filt Rate - Afr Amer 145 mL/min (>60); Globulin 3.8 g/dL (2.2-4.2); Glucose 106 mg/dL (74-106); Potassium 4.8 mmol/L (3.5-5.1); Protein, Total 7.2 g/dL (6.4-8.2); Sodium Level 136 mmol/L (136-145)
== END | disposition home or self-care (01) ==
LOC: MEDOUTP 08:10
PROVIDERS: PCP Internal Medicine; Referring Provider Nurse Practitioner Family; Visit Provider Nurse Practitioner Family
DX: A59.8 Trichomoniasis of other sites (principal)
CPT/HCPCS: 36415; 80053; 85027; A4216

== ENCOUNTER → 2022-03-01 | Outpatient (CLI) | payer BC, SELFPAY ==
[2022-03-01] MEDS: 0.9% NaCl PICC Flush IV ×2 (08:25→09:03)
[2022-03-01] MEDS: Alteplase 2 MG/2 ML Vial IV ×2 (08:31)
== END | disposition home or self-care (01) ==
LOC: MEDOUTP 08:07
PROVIDERS: PCP Internal Medicine; Referring Provider Nurse Practitioner Family; Visit Provider Nurse Practitioner Family
DX: Z45.2 Encounter for adjustment and management of vascular access device (principal)
CPT/HCPCS: 36593; J2997; A4216

== ENCOUNTER → 2022-03-07 | Outpatient (CLI) | payer BC, SELFPAY | END | disposition home or self-care (01) | LOC: MEDOUTP 08:19 | PROVIDERS: PCP Internal Medicine; Referring Provider Nurse Practitioner Family; Visit Provider Nurse Practitioner Family | DX: A69.8 Other specified spirochetal infections (principal) | CPT/HCPCS: A4216 ==

== ENCOUNTER 2022-03-14 08:01 | Outpatient (CLI) | payer BC, SELFPAY | END 2022-03-14 23:59 | disposition home or self-care (01) | LOC: MEDOUTP 08:01 | PROVIDERS: PCP Internal Medicine; Referring Provider Nurse Practitioner Family; Visit Provider Nurse Practitioner Family | DX: A69.8 Other specified spirochetal infections (principal) | CPT/HCPCS: A4216 ==

== ENCOUNTER 2022-03-15 07:55 | Outpatient (CLI) | payer BC, SELFPAY ==
[2022-03-15] MEDS: Alteplase 2 MG/2 ML Vial IV ×2 (08:08)
[2022-03-15 08:54] LABS: Hematocrit 37.1 % (37-47); Hemoglobin 12.8 g/dL (12.0-15.0); Mean Corp Hgb Conc 34.5 g/dL (32-36); Mean Corpuscular Volume 92.8 fL (81-99); Mean Platelet Vol. 10.2 fl (6.2-12.0); Platelet Count 248 K/mm3 (150-450); RBC Distribution Width CV 12.8 % (11.6-14.6); RBC Distribution Width SD 43.1 fl (35.1-43.9); White Blood Count 8.2 K/mm3 (4.4-11.0)
[2022-03-15] MEDS: 0.9% NaCl PICC Flush IV (08:59)
[2022-03-15 09:11] LABS: ALB/GLOB Ratio 0.9 RATIO (0.9-2.4); AST(SGOT) 21 U/L (15-37); Alanine Aminotransfer ALT/SGPT 38 U/L (13-56); Albumin, Serum 3.3 g/dL (3.2-5.0); Alkaline Phosphatase 73 U/L (45-117); Anion Gap 4 (5-15); BUN 15 mg/dL (7-18); BUN/Creat Ratio 26.5 RATIO (10-20); Chloride 105 mmol/L (98-107); Creatinine, Serum 0.57 mg/dL (0.55-1.02); EST Glomerular Filtration Rate 124 mL/min (>60); Est Glom Filt Rate - Afr Amer 150 mL/min (>60); Globulin 3.7 g/dL (2.2-4.2); Glucose 133 mg/dL (74-106); Potassium 4.2 mmol/L (3.5-5.1); Sodium Level 137 mmol/L (136-145)
== END 2022-03-15 23:59 | disposition home or self-care (01) ==
LOC: MEDOUTP 07:55
PROVIDERS: PCP Internal Medicine; Referring Provider Nurse Practitioner Family; Visit Provider Nurse Practitioner Family
DX: A69.8 Other specified spirochetal infections (principal)
CPT/HCPCS: 36593; 80053; 85027; J2997; A4216

== ENCOUNTER 2022-03-21 08:05 | Outpatient (CLI) | payer BC, SELFPAY | END 2022-03-21 23:59 | disposition home or self-care (01) | LOC: MEDOUTP 08:05 | PROVIDERS: PCP Internal Medicine; Referring Provider Nurse Practitioner Family; Visit Provider Nurse Practitioner Family | DX: A69.8 Other specified spirochetal infections (principal) | CPT/HCPCS: A4216 ==

== ENCOUNTER → 2022-03-28 | Outpatient (CLI) | payer BC, SELFPAY ==
[2022-03-28 08:42] LABS: Hematocrit 39.2 % (37-47); Hemoglobin 13.6 g/dL (12.0-15.0); Mean Corp Hgb Conc 34.7 g/dL (32-36); Mean Corpuscular Hgb 31.7 pg (27.0-32.0); Mean Corpuscular Volume 91.4 fL (81-99); Mean Platelet Vol. 9.9 fl (6.2-12.0); Platelet Count 291 K/mm3 (150-450); RBC Distribution Width CV 12.7 % (11.6-14.6); RBC Distribution Width SD 41.9 fl (35.1-43.9); Red Blood Count 4.29 M/mm3 (4.2-5.4); White Blood Count 6.7 K/mm3 (4.4-11.0)
[2022-03-28 08:59] LABS: ALB/GLOB Ratio 0.9 RATIO (0.9-2.4); AST(SGOT) 19 U/L (15-37); Alanine Aminotransfer ALT/SGPT 32 U/L (13-56); Albumin, Serum 3.4 g/dL (3.2-5.0); Alkaline Phosphatase 79 U/L (45-117); Anion Gap 6 (5-15); BUN 14 mg/dL (7-18); BUN/Creat Ratio 23.3 RATIO (10-20); Calcium,Total 8.9 mg/dL (8.5-10.1); Chloride 103 mmol/L (98-107); EST Glomerular Filtration Rate 116 mL/min (>60); Est Glom Filt Rate - Afr Amer 141 mL/min (>60); Globulin 3.9 g/dL (2.2-4.2); Glucose 97 mg/dL (74-106); Potassium 4.1 mmol/L (3.5-5.1); Protein, Total 7.3 g/dL (6.4-8.2); Sodium Level 137 mmol/L (136-145)
== END | disposition home or self-care (01) ==
LOC: MEDOUTP 08:06
PROVIDERS: PCP Internal Medicine; Referring Provider Nurse Practitioner Family; Visit Provider Nurse Practitioner Family
DX: A59.8 Trichomoniasis of other sites (principal)
CPT/HCPCS: 36592; 80053; 85027; A4216

== ENCOUNTER → 2022-04-04 | Outpatient (CLI) | payer BC, SELFPAY | END | disposition home or self-care (01) | LOC: MEDOUTP 11:53 | PROVIDERS: PCP Internal Medicine; Referring Provider Nurse Practitioner Family; Visit Provider Nurse Practitioner Family | DX: A59.8 Trichomoniasis of other sites (principal) | CPT/HCPCS: A4216 ==

== ENCOUNTER → 2022-04-11 | Outpatient (CLI) | payer BC, SELFPAY ==
[2022-04-11 08:37] LABS: Hematocrit 37.5 % (37-47); Hemoglobin 12.9 g/dL (12.0-15.0); Mean Corp Hgb Conc 34.4 g/dL (32-36); Mean Corpuscular Hgb 31.2 pg (27.0-32.0); Mean Corpuscular Volume 90.8 fL (81-99); Mean Platelet Vol. 9.9 fl (6.2-12.0); Platelet Count 319 K/mm3 (150-450); RBC Distribution Width CV 12.6 % (11.6-14.6); RBC Distribution Width SD 41.6 fl (35.1-43.9); Red Blood Count 4.13 M/mm3 (4.2-5.4); White Blood Count 6.3 K/mm3 (4.4-11.0)
[2022-04-11 08:53] LABS: ALB/GLOB Ratio 0.9 RATIO (0.9-2.4); AST(SGOT) 16 U/L (15-37); Alanine Aminotransfer ALT/SGPT 29 U/L (13-56); Albumin, Serum 3.3 g/dL (3.2-5.0); Alkaline Phosphatase 66 U/L (45-117); Anion Gap 7 (5-15); BUN 11 mg/dL (7-18); BUN/Creat Ratio 17.9 RATIO (10-20); Calcium,Total 8.3 mg/dL (8.5-10.1); Chloride 105 mmol/L (98-107); Creatinine, Serum 0.61 mg/dL (0.55-1.02); EST Glomerular Filtration Rate 113 mL/min (>60); Est Glom Filt Rate - Afr Amer 137 mL/min (>60); Globulin 3.6 g/dL (2.2-4.2); Glucose 100 mg/dL (74-106); Potassium 4.1 mmol/L (3.5-5.1); Protein, Total 6.9 g/dL (6.4-8.2); Sodium Level 138 mmol/L (136-145)
== END | disposition home or self-care (01) ==
LOC: MEDOUTP 08:00
PROVIDERS: PCP Internal Medicine; Referring Provider Nurse Practitioner Family; Visit Provider Nurse Practitioner Family
DX: A69.8 Other specified spirochetal infections (principal)
CPT/HCPCS: 36592; 80053; 85027; A4216

== ENCOUNTER → 2022-04-12 | Outpatient (CLI) | payer BC, SELFPAY | END | disposition home or self-care (01) | LOC: MEDOUTP 09:21 | PROVIDERS: PCP Internal Medicine; Referring Provider Nurse Practitioner Family; Visit Provider Nurse Practitioner Family | DX: A69.8 Other specified spirochetal infections (principal) | CPT/HCPCS: A4216 ==

== ENCOUNTER → 2022-04-15 | Outpatient (CLI) | payer BC, SELFPAY ==
[2022-04-19 15:08] LABS: Red Blood Cell Count Test/G6PD 4.48 x10E6/uL (3.77-5.28)
[2022-04-19 22:12] LABS: G6PD Quant Test 277 (127-427)
== END | disposition home or self-care (01) ==
PROVIDERS: PCP Internal Medicine; Visit Provider Nurse Practitioner Family
DX: A69.20 Lyme disease, unspecified (principal)
CPT/HCPCS: 82955

== ENCOUNTER → 2022-04-18 | Outpatient (CLI) | payer BC, SELFPAY | END | disposition home or self-care (01) | LOC: MEDOUTP 08:04 | PROVIDERS: PCP Internal Medicine; Referring Provider Nurse Practitioner Family; Visit Provider Nurse Practitioner Family | DX: A69.8 Other specified spirochetal infections (principal) | CPT/HCPCS: A4216 ==

== ENCOUNTER → 2022-04-25 | Outpatient (CLI) | payer BC, SELFPAY ==
[2022-04-25 08:51] LABS: Hemoglobin 12.2 g/dL (12.0-15.0); Mean Corpuscular Hgb 30.1 pg (27.0-32.0); Mean Corpuscular Volume 91.4 fL (81-99); Mean Platelet Vol. 10.2 fl (6.2-12.0); Platelet Count 244 K/mm3 (150-450); RBC Distribution Width CV 13.1 % (11.6-14.6); RBC Distribution Width SD 42.8 fl (35.1-43.9); Red Blood Count 4.05 M/mm3 (4.2-5.4); White Blood Count 5.6 K/mm3 (4.4-11.0)
[2022-04-25 09:06] LABS: ALB/GLOB Ratio 0.8 RATIO (0.9-2.4); AST(SGOT) 51 U/L (15-37); Alanine Aminotransfer ALT/SGPT 105 U/L (13-56); Albumin, Serum 3.2 g/dL (3.2-5.0); Alkaline Phosphatase 68 U/L (45-117); Anion Gap 5 (5-15); BUN 11 mg/dL (7-18); BUN/Creat Ratio 16.9 RATIO (10-20); Calcium,Total 8.7 mg/dL (8.5-10.1); Chloride 108 mmol/L (98-107); Creatinine, Serum 0.65 mg/dL (0.55-1.02); EST Glomerular Filtration Rate 106 mL/min (>60); Est Glom Filt Rate - Afr Amer 128 mL/min (>60); Globulin 3.8 g/dL (2.2-4.2); Glucose 125 mg/dL (74-106); Potassium 4.1 mmol/L (3.5-5.1); Sodium Level 139 mmol/L (136-145)
== END | disposition home or self-care (01) ==
LOC: MEDOUTP 08:02
PROVIDERS: PCP Internal Medicine; Referring Provider Nurse Practitioner Family; Visit Provider Nurse Practitioner Family
DX: A69.8 Other specified spirochetal infections (principal)
CPT/HCPCS: 36415; 36592; 80053; 85027; A4216

== ENCOUNTER → 2022-05-04 | Outpatient (CLI) | payer BC, SELFPAY ==
[2022-05-04 09:36] LABS: Absolute Lymphocyte Count 0.81 X10^3/uL (0.83-4.51); Absolute Neutrophil Count 1.2 X10^3/uL (2.0-7.7); Basophil# 0.02 X10^3/uL; Basophil% 0.8 % (0-1); Eosinophil# 0.15 X10^3/uL; Eosinophils% 5.8 % (0-5); Hematocrit 38.2 % (37-47); Hemoglobin 12.7 g/dL (12.0-15.0); Lymphocyte # 0.81 X10^3/ul (0.83-4.51); Lymphocyte % 31.5 % (19-41); Mean Corp Hgb Conc 33.2 g/dL (32-36); Mean Corpuscular Hgb 30.3 pg (27.0-32.0); Mean Corpuscular Volume 91.2 fL (81-99); Mean Platelet Vol. 10.9 fl (6.2-12.0); Monocyte# 0.34 X10^3/uL; Monocyte% 13.2 % (0-10); NRBC Flagged by Analyzer 0 % (0-5); Neutrophil # 1.24 X10^3/uL (2.7-7.7); Neutrophil % 48.3 % (47-70); Platelet Count 263 K/mm3 (150-450); RBC Distribution Width CV 12.9 % (11.6-14.6); RBC Distribution Width SD 42.3 fl (35.1-43.9); Red Blood Count 4.19 M/mm3 (4.2-5.4); White Blood Count 2.6 K/mm3 (4.4-11.0)
[2022-05-04 10:00] LABS: AST(SGOT) 37 U/L (15-37); Alanine Aminotransfer ALT/SGPT 57 U/L (13-56); Albumin, Serum 3.7 g/dL (3.2-5.0); Alkaline Phosphatase 70 U/L (45-117); Anion Gap 8 (5-15); BUN 16 mg/dL (7-18); BUN/Creat Ratio 26.2 RATIO (10-20); Calcium,Total 8.6 mg/dL (8.5-10.1); Chloride 107 mmol/L (98-107); Creatinine, Serum 0.61 mg/dL (0.55-1.02); EST Glomerular Filtration Rate 114 mL/min (>60); Est Glom Filt Rate - Afr Amer 138 mL/min (>60); Globulin 3.6 g/dL (2.2-4.2); Glucose 100 mg/dL (74-106); Protein, Total 7.3 g/dL (6.4-8.2); Sodium Level 139 mmol/L (136-145)
[2022-05-04 17:27] LABS: Xtra Tube EP Lab EXTRA TUBE
== END | disposition home or self-care (01) ==
LOC: MEDOUTP 07:57
PROVIDERS: PCP Internal Medicine; Referring Provider Nurse Practitioner Family; Visit Provider Nurse Practitioner Family
DX: R74.01 Elevation of levels of liver transaminase levels (principal); R19.7 Diarrhea, unspecified
CPT/HCPCS: 36592; 80053; 85025; A4216

== ENCOUNTER → 2022-05-09 | Outpatient (CLI) | payer BC, SELFPAY ==
[2022-05-09 08:57] LABS: Absolute Lymphocyte Count 1.02 X10^3/uL (0.83-4.51); Absolute Neutrophil Count 2.4 X10^3/uL (2.0-7.7); Basophil# 0.02 X10^3/uL; Basophil% 0.5 % (0-1); Hematocrit 37.9 % (37-47); Hemoglobin 12.8 g/dL (12.0-15.0); Lymphocyte # 1.02 X10^3/ul (0.83-4.51); Lymphocyte % 23.7 % (19-41); Mean Corp Hgb Conc 33.8 g/dL (32-36); Mean Corpuscular Hgb 30.7 pg (27.0-32.0); Mean Corpuscular Volume 90.9 fL (81-99); Mean Platelet Vol. 9.5 fl (6.2-12.0); Monocyte% 13.9 % (0-10); NRBC Flagged by Analyzer 0 % (0-5); Neutrophil # 2.35 X10^3/uL (2.7-7.7); Neutrophil % 54.4 % (47-70); Platelet Count 259 K/mm3 (150-450); RBC Distribution Width CV 13.1 % (11.6-14.6); RBC Distribution Width SD 42.7 fl (35.1-43.9); Red Blood Count 4.17 M/mm3 (4.2-5.4); White Blood Count 4.3 K/mm3 (4.4-11.0)
[2022-05-09 09:13] LABS: ALB/GLOB Ratio 0.9 RATIO (0.9-2.4); AST(SGOT) 37 U/L (15-37); Alanine Aminotransfer ALT/SGPT 73 U/L (13-56); Albumin, Serum 3.4 g/dL (3.2-5.0); Alkaline Phosphatase 63 U/L (45-117); Anion Gap 8 (5-15); BUN 16 mg/dL (7-18); BUN/Creat Ratio 29.7 RATIO (10-20); Calcium,Total 9.1 mg/dL (8.5-10.1); Chloride 105 mmol/L (98-107); Creatinine, Serum 0.54 mg/dL (0.55-1.02); EST Glomerular Filtration Rate 131 mL/min (>60); Est Glom Filt Rate - Afr Amer 159 mL/min (>60); Globulin 3.6 g/dL (2.2-4.2); Glucose 114 mg/dL (74-106); Potassium 4.5 mmol/L (3.5-5.1); Sodium Level 138 mmol/L (136-145)
== END | disposition home or self-care (01) ==
PROVIDERS: PCP Internal Medicine; Referring Provider Nurse Practitioner Family; Visit Provider Nurse Practitioner Family
DX: R74.01 Elevation of levels of liver transaminase levels (principal); R69 Illness, unspecified; R19.7 Diarrhea, unspecified; A69.8 Other specified spirochetal infections
CPT/HCPCS: 36415; 80053; 85025; A4216

== ENCOUNTER → 2022-05-16 | Outpatient (CLI) | payer BC, SELFPAY | END | disposition home or self-care (01) | LOC: MEDOUTP 08:01 | PROVIDERS: PCP Internal Medicine; Referring Provider Nurse Practitioner Family; Visit Provider Nurse Practitioner Family | DX: A69.8 Other specified spirochetal infections (principal) | CPT/HCPCS: A4216 ==

== ENCOUNTER → 2022-05-23 | Outpatient (CLI) | payer BC, SELFPAY ==
[2022-05-23 08:51] LABS: Hematocrit 38.6 % (37-47); Hemoglobin 12.8 g/dL (12.0-15.0); Mean Corp Hgb Conc 33.2 g/dL (32-36); Mean Corpuscular Hgb 29.5 pg (27.0-32.0); Mean Corpuscular Volume 88.9 fL (81-99); Mean Platelet Vol. 9.4 fl (6.2-12.0); Platelet Count 241 K/mm3 (150-450); RBC Distribution Width CV 12.6 % (11.6-14.6); RBC Distribution Width SD 40.6 fl (35.1-43.9); Red Blood Count 4.34 M/mm3 (4.2-5.4)
[2022-05-23 09:08] LABS: AST(SGOT) 22 U/L (15-37); Alanine Aminotransfer ALT/SGPT 41 U/L (13-56); Albumin, Serum 3.6 g/dL (3.2-5.0); Alkaline Phosphatase 61 U/L (45-117); Anion Gap 5 (5-15); BUN 7 mg/dL (7-18); Calcium,Total 9.1 mg/dL (8.5-10.1); Chloride 109 mmol/L (98-107); Creatinine, Serum 0.58 mg/dL (0.55-1.02); EST Glomerular Filtration Rate 120 mL/min (>60); Est Glom Filt Rate - Afr Amer 146 mL/min (>60); Globulin 3.7 g/dL (2.2-4.2); Glucose 85 mg/dL (74-106); Potassium 4.3 mmol/L (3.5-5.1); Protein, Total 7.3 g/dL (6.4-8.2); Sodium Level 140 mmol/L (136-145)
== END | disposition home or self-care (01) ==
LOC: MEDOUTP 08:00
PROVIDERS: PCP Internal Medicine; Referring Provider Nurse Practitioner Family; Visit Provider Nurse Practitioner Family
DX: A69.8 Other specified spirochetal infections (principal)
CPT/HCPCS: 36415; 80053; 85027; 96523; A4216

== ENCOUNTER → 2022-05-30 | Outpatient (CLI) | payer BC, SELFPAY | END | disposition home or self-care (01) | LOC: MEDOUTP 08:12 | PROVIDERS: PCP Internal Medicine; Referring Provider Nurse Practitioner Family; Visit Provider Nurse Practitioner Family | DX: A69.8 Other specified spirochetal infections (principal) | CPT/HCPCS: A4216 ==

== ENCOUNTER → 2022-05-31 | Outpatient (CLI) | payer BC, SELFPAY ==
--- NOTE | 2022-05-31 10:24 | BI_ITS ---
MAMMOGRAPHY - BILATERAL SCREENING REASON FOR EXAM: Female, 41 years old. Routine annual screening examination. PERTINENT HISTORY: Non-contributory. TECHNIQUE: Digital bilateral breast yordy (3D mammographic acquisition) in the CC and MLO projections. 2-D mediolateral oblique (MLO) and craniocaudad (CC) views of both breasts were obtained. CAD: Full Field Digital Mammography with Computer Added Detection was performed. COMPARISON: Comparison is made with prior study dated 12/14/2020 and 06/20/2017. FINDINGS: Breast Composition: The breasts are heterogeneously dense, which may obscure small masses. There are no dominant masses or suspicious calcifications. Stable small benign-appearing bilateral axillary lymph nodes. No other significant abnormalities are identified. There has been no significant change since the prior study. BI/SCRN MAMM (CAD)W/YORDY BILAT IMPRESSION: Stable bilateral screening mammogram. Yearly follow-up mammogram recommended. (A) ASSESSMENT CATEGORY: BIRADS Category 2: Benign. A letter regarding these results will be sent to the patient by the facility within 30 days. Approximately 10% of breast cancers are not detected by mammography. A normal mammogram should not delay biopsy of a clinically suspicious abnormality. [id number] Electronically Signed: Moncho Sandoval MD at 9:28 EST ,
[2022-06-06 11:36] LABS: HPV APTIMA, High Risk Negative (Negative)
== END | disposition home or self-care (01) ==
PROVIDERS: PCP Internal Medicine; Referring Provider Obstetrics & Gynecology; Visit Provider Obstetrics & Gynecology
DX: Z12.31 Encounter for screening mammogram for malignant neoplasm of breast (principal); Z12.4 Encounter for screening for malignant neoplasm of cervix
CPT/HCPCS: 77063; 77067; 87624; 88175; G0145

== ENCOUNTER → 2022-06-05 | Outpatient (CLI) | payer BC, SELFPAY ==
--- NOTE | 2022-06-05 12:45 | US_ITS ---
STUDY: ULTRASOUND OF THE FEMALE PELVIS - COMPLETE REASON FOR EXAM: Female, 41 years old. AUB LMP: TECHNIQUE: Transabdominal and transvaginal TECHNICAL QUALITY: Adequate. COMPARISON: None. FINDINGS: The uterus is anteverted and is in a midline position. The uterus measures 7.4 x 4.7 x 4 cm. Normal uterine cervix. The endometrium measures 4 mm in thickness, and is hyperechoic. There is no demonstrated endometrial mass. There is a right fundal fibroid measuring 1.3 x 1.2 x 1.1 cm. I.U.D. - The patient does not have an I.U.D. The right ovary is visualized. The right ovary measures 2.3 x 1.3 x 1.3 cm. There is no right ovarian cyst or ovarian mass. There is no visualized right adnexal mass or complex lesion. There is normal arterial and normal venous vascularity. The left ovary is visualized. The left ovary measures 2.6 x 1.8 x 1.4 cm. There is no left ovarian cyst or ovarian mass. There is no visualized left adnexal mass or complex lesion. There is normal arterial and normal venous vascularity. There is no fluid in the cul-de-sac. The pre void volume of the bladder was 255 ml. US/Pelvic (Non ) IMPRESSION: Small intrauterine fibroid measuring approximately 1.3 x 1.2 x 1.1 cm. Electronically Signed: Akash Velasquez MD at 22:14 EST ,
== END | disposition home or self-care (01) ==
LOC: US 12:43
PROVIDERS: PCP Internal Medicine; Referring Provider Obstetrics & Gynecology; Visit Provider Obstetrics & Gynecology
DX: N94.6 Dysmenorrhea, unspecified (principal)
CPT/HCPCS: 76830; 76856

== ENCOUNTER → 2022-06-06 | Outpatient (CLI) | payer BC, SELFPAY ==
[2022-06-06 08:32] LABS: Hematocrit 38.3 % (37-47); Hemoglobin 13.2 g/dL (12.0-15.0); Mean Corp Hgb Conc 34.5 g/dL (32-36); Mean Corpuscular Hgb 30.2 pg (27.0-32.0); Mean Corpuscular Volume 87.6 fL (81-99); Mean Platelet Vol. 10.1 fl (6.2-12.0); Platelet Count 257 K/mm3 (150-450); RBC Distribution Width CV 13.2 % (11.6-14.6); RBC Distribution Width SD 42.2 fl (35.1-43.9); Red Blood Count 4.37 M/mm3 (4.2-5.4); White Blood Count 4.7 K/mm3 (4.4-11.0)
[2022-06-06 08:47] LABS: AST(SGOT) 20 U/L (15-37); Alanine Aminotransfer ALT/SGPT 33 U/L (13-56); Albumin, Serum 3.6 g/dL (3.2-5.0); Alkaline Phosphatase 67 U/L (45-117); Anion Gap 7 (5-15); BUN 16 mg/dL (7-18); BUN/Creat Ratio 26.1 RATIO (10-20); Calcium,Total 9.1 mg/dL (8.5-10.1); Chloride 106 mmol/L (98-107); Creatinine, Serum 0.61 mg/dL (0.55-1.02); EST Glomerular Filtration Rate 113 mL/min (>60); Est Glom Filt Rate - Afr Amer 137 mL/min (>60); Globulin 3.6 g/dL (2.2-4.2); Glucose 133 mg/dL (74-106); Potassium 4.2 mmol/L (3.5-5.1); Protein, Total 7.2 g/dL (6.4-8.2); Sodium Level 139 mmol/L (136-145)
== END | disposition home or self-care (01) ==
LOC: MEDOUTP 08:05
PROVIDERS: PCP Internal Medicine; Referring Provider Nurse Practitioner Family; Visit Provider Nurse Practitioner Family
DX: A69.8 Other specified spirochetal infections (principal)
CPT/HCPCS: 36592; 80053; 85027; A4216

== ENCOUNTER → 2022-06-13 | Outpatient (CLI) | payer BC, SELFPAY | END | disposition home or self-care (01) | PROVIDERS: PCP Internal Medicine; Referring Provider Nurse Practitioner Family; Visit Provider Nurse Practitioner Family | DX: A69.8 Other specified spirochetal infections (principal) | CPT/HCPCS: A4216 ==

== ENCOUNTER → 2022-06-20 | Outpatient (CLI) | payer BC, SELFPAY ==
[2022-06-20 08:50] LABS: Hematocrit 37.5 % (37-47); Hemoglobin 12.5 g/dL (12.0-15.0); Mean Corp Hgb Conc 33.3 g/dL (32-36); Mean Corpuscular Volume 90.1 fL (81-99); Platelet Count 308 K/mm3 (150-450); RBC Distribution Width CV 13.6 % (11.6-14.6); RBC Distribution Width SD 44.3 fl (35.1-43.9); Red Blood Count 4.16 M/mm3 (4.2-5.4); White Blood Count 6.2 K/mm3 (4.4-11.0)
[2022-06-20 09:07] LABS: ALB/GLOB Ratio 0.9 RATIO (0.9-2.4); AST(SGOT) 22 U/L (15-37); Alanine Aminotransfer ALT/SGPT 29 U/L (13-56); Albumin, Serum 3.4 g/dL (3.2-5.0); Alkaline Phosphatase 66 U/L (45-117); Anion Gap 7 (5-15); BUN 10 mg/dL (7-18); BUN/Creat Ratio 15.1 RATIO (10-20); Calcium,Total 8.6 mg/dL (8.5-10.1); Chloride 110 mmol/L (98-107); Creatinine, Serum 0.66 mg/dL (0.55-1.02); EST Glomerular Filtration Rate 104 mL/min (>60); Est Glom Filt Rate - Afr Amer 126 mL/min (>60); Globulin 3.6 g/dL (2.2-4.2); Glucose 102 mg/dL (74-106); Potassium 4.2 mmol/L (3.5-5.1); Sodium Level 142 mmol/L (136-145)
== END | disposition home or self-care (01) ==
LOC: MEDOUTP 08:06
PROVIDERS: PCP Internal Medicine; Referring Provider Nurse Practitioner Family; Visit Provider Nurse Practitioner Family
DX: A59.8 Trichomoniasis of other sites (principal)
CPT/HCPCS: 36592; 80053; 85027; 96523; A4216

== ENCOUNTER → 2022-08-07 | Outpatient (CLI) | payer BC, SELFPAY ==
[2022-08-08 22:07] LABS: Chlamydia By Nucleic Acid AMP Negative (Negative)
[2022-08-09 09:39] LABS: Gonococcus By Nucleic Acid AMP Negative (Negative)
== END | disposition home or self-care (01) ==
PROVIDERS: PCP Internal Medicine; Referring Provider Nurse Practitioner Women's Health; Visit Provider Nurse Practitioner Women's Health
DX: R10.2 Pelvic and perineal pain (principal)
CPT/HCPCS: 87070; 87077; 87205; 87491; 87591

== ENCOUNTER → 2022-08-16 | Outpatient (CLI) | payer BC, SELFPAY ==
--- NOTE | 2022-08-16 08:11 | US_ITS ---
STUDY: ULTRASOUND OF THE FEMALE PELVIS - COMPLETE REASON FOR EXAM: Female, 42 years old. Pain LMP: 08/07/2022 TECHNIQUE: Transabdominal and Transvaginal TECHNICAL QUALITY: Adequate. COMPARISON: None. FINDINGS: The uterus is anteverted and is in a midline position. The uterus measures 8.1 x 4.8 x 4.3 cm. Normal uterine cervix. The endometrium measures 4.0 mm in thickness, and is hyperechoic. There is no demonstrated endometrial mass. There is a 1.2 x 1.1 x 0.9 cm fibroid. I.U.D. - The patient does not have an I.U.D. The right ovary is not visualized. The left ovary is visualized. The left ovary measures 2.2 x 1.6 x 1.7 cm. There is a simple 1.4 cm cyst. . There is normal arterial and normal venous vascularity. There is minimal fluid in the cul-de-sac. The bladder is sonographically normal US/Pelvic (Non ) IMPRESSION: Small uterine fibroid Simple left adnexal cyst, no specific follow-up needed. Trace free fluid in the cul-de-sac is likely physiologic Electronically Signed: Garcia Molina MD at 9:16 EDT ,
== END | disposition home or self-care (01) ==
LOC: US 08:08
PROVIDERS: PCP Internal Medicine; Referring Provider Nurse Practitioner Women's Health; Visit Provider Nurse Practitioner Women's Health
DX: R10.2 Pelvic and perineal pain (principal)
CPT/HCPCS: 76830; 76856

== ENCOUNTER → 2022-09-27 | Outpatient (CLI) | payer BC, SELFPAY ==
[2022-09-27 10:37] LABS: Erythrocyte Sedimentation Rate 15 mm/hr (0-30)
[2022-09-27 10:44] LABS: Hemoglobin A1c 5.4 % (3.8-5.6)
[2022-09-27 11:01] LABS: Vitamin B12 323 pg/mL (211-911)
[2022-09-27 11:39] LABS: CPK Total, Creatine Kinase 68 U/L (26-192); CRP 7.12 mg/L (0.0-3.0); Follicle Stimulating Hormone 3.7 mIU/mL; LDH 180 U/L (84-246); Luteinizing Hormone 13.6 mIU/mL; Prolactin 4.9 ng/mL
[2022-09-28 16:09] LABS: Endomysial Antibody IgA Negative (Negative); Immunoglobulin A 253 mg/dL (87-352); t-Transglutaminase IgA <2 U/mL (0-3)
[2022-10-02 00:06] LABS: Anti-Centromere B Ab <0.2 AI (0.0-0.9); Anti-Chromatin <0.2 AI (0.0-0.9); Anti-Jo <0.2 AI (0.0-0.9); Anti-Scleroderma-70 AB <0.2 AI (0.0-0.9); Anti-dsDNA Ab <1 IU/mL (0-9); Beef <0.10 kU/L (Class 0); Chocolate <0.10 kU/L (Class 0); Clam <0.10 kU/L (Class 0); Codfish <0.10 kU/L (Class 0); Corn <0.10 kU/L (Class 0); Egg, White <0.10 kU/L (Class 0); Egg, Whole <0.10 kU/L (Class 0); Milk (Cow) <0.10 kU/L (Class 0); Peanut <0.10 kU/L (Class 0); Pork <0.10 kU/L (Class 0); RNP Ab 0.2 AI (0.0-0.9); SCALLOP <0.10 kU/L (Class 0); SESAME SEED <0.10 kU/L (Class 0); SJOGREN'S Anti-SS-A test < 0.2 AI (0.0-0.9); SJOGREN'S Anti-SS-B test < 0.2 AI (0.0-0.9); Shrimp <0.10 kU/L (Class 0); Smith Ab <0.2 AI (0.0-0.9); Soybean <0.10 kU/L (Class 0); Walnut, (Food) <0.10 kU/L (Class 0); Wheat <0.10 kU/L (Class 0)
[2022-10-02 13:07] LABS: Albumin 3.7 g/dL (2.9-4.4); Alpha-1-Globulins 0.3 g/dL (0.0-0.4); Alpha-2-Globulins 0.8 g/dL (0.4-1.0); Angiotensin Convert Enzyme 36 U/L (14-82); CMV Antibody IgG < 0.60 U/mL (0.00-0.59); Cytoplasmic Ab (C-ANCA) <1:20 titer (Neg:<1:20); EBV Acute VCA IgM < 36.0 U/mL (0.0-35.9); EBV Early Antigen IgG 38.4 U/mL (0.0-8.9); EBV Nuclear Antigen IgG > 600.0 U/mL (0.0-17.9); EBV-VCA IgG > 600.0 U/mL (0.0-17.9); Gamma Globulin 0.9 g/dL (0.4-1.8); Immunoglobulin A 256 mg/dL (87-352); Immunoglobulin E 38 IU/mL (6-495); Immunoglobulin G 953 mg/dL (586-1602); Immunoglobulin M 127 mg/dL (26-217); PROEL- TOTAL PROTEIN 6.9 g/dL (6.0-8.5); Perinuclear Ab (P-ANCA) <1:20 titer (Neg:<1:20)
== END | disposition home or self-care (01) ==
PROVIDERS: PCP Internal Medicine; Referring Provider Internal Medicine Gastroenterology; Visit Provider Internal Medicine Gastroenterology
DX: R19.4 Change in bowel habit (principal)
CPT/HCPCS: 36415; 82164; 82533; 82550; 82607; 82746; 82784; 82785; 83001; 83002; 83036; 83516; 83615; 84146; 84165; 85652; 86003; 86005; 86140; 86225; 86235; 86255; 86256; 86334; 86644; 86663; 86664; 86665

== ENCOUNTER → 2022-10-05 | Outpatient (CLI) | payer BC, SELFPAY ==
[2022-10-31 11:09] LABS: Calprotectin, Stool 19 ug/g (0-120); Fats, Neutral Normal (.); Fats, Total Normal (.)
== END | disposition home or self-care (01) ==
LOC: LABSPEC 18:27
PROVIDERS: PCP Internal Medicine; Visit Provider Internal Medicine Gastroenterology
DX: R19.4 Change in bowel habit (principal); K58.9 Irritable bowel syndrome, unspecified
CPT/HCPCS: 82653; 82705; 83630; 83993; 87177; 87209; 87329; 87506

== ENCOUNTER → 2022-10-07 | Outpatient (CLI) | payer BC, SELFPAY ==
[2022-10-11 04:07] LABS: 5-HIAA, UR 0.9 mg/L (Undefined)
== END | disposition home or self-care (01) ==
PROVIDERS: PCP Internal Medicine; Referring Provider Internal Medicine Gastroenterology; Visit Provider Internal Medicine Gastroenterology
DX: R19.4 Change in bowel habit (principal)
CPT/HCPCS: 81050; 83497

== ENCOUNTER → 2022-11-13 | Outpatient (CLI) | payer BC, SELFPAY ==
[2022-11-13 14:28] LABS: Rubella IgG Reactive (Nonreactive)
[2022-11-17 00:07] LABS: HEPATITIS B SURFACE AG Negative (Negative); Hep C Antibodies Non Reactive (Non Reactive); Hepatitis A IgM Antibody Negative (Negative); Hepatitis B Core AB IgM Negative (Negative); Mumps Antibody, IgM < 0.80 AU (0.00-0.79); QNTFERON TB Mitogen Value > 10.00 IU/mL (.); QNTFERON TB Nil Value 0 IU/mL (.); QNTFERON TB1+ Ag Value 0 IU/mL (.); QNTFERON TB2+ Ag Value 0 IU/mL (.); QNTIFERON TB Positive Criteria Negative (Negative); V-Zoster IgG (Immunity) 1093 index (Immune >165)
== END | disposition home or self-care (01) ==
PROVIDERS: PCP Internal Medicine; Referring Provider Internal Medicine Gastroenterology; Visit Provider Internal Medicine Gastroenterology
DX: K50.90 Crohn's disease, unspecified, without complications (principal)
CPT/HCPCS: 36415; 80074; 86480; 86615; 86735; 86762; 86787

== ENCOUNTER → 2022-12-26 | Outpatient (CLI) | payer BC, SELFPAY ==
--- NOTE | 2022-12-26 12:23 | MRI_ITS ---
MR Enterography Abdomen/Pelvis WO/W Contrast 12/26/2022 2:17 PM COMPARISON: CT 02/20/2019 CLINICAL HISTORY: K50.90 - Crohn''s disease, unspecified, without complications TECHNIQUE: Following oral administration of enteric contrast and administration of glucagon, multiplanar T1 and T2 weighted images along with dynamic post-gadolinium images were obtained through the abdomen and pelvis. FINDINGS: GI Tract: Multiple loops of proximal small bowel demonstrate circumferential wall thickening in mild mucosal hyperenhancement. No stricture, fistula, or obstruction. No drainable fluid collections. Liver: Unremarkable Gallbladder: Unremarkable Spleen: Unremarkable Pancreas: Unremarkable Adrenal Glands: Unremarkable Kidneys: Mild bilateral hydronephrosis. Reproductive: Unremarkable Bladder: Distended. Lymphadenopathy: Absent Ascites: Absent Bones: No suspicious lesions MRI/Enterography Abd/Pel IMPRESSION: Findings consistent with mild acute flare of inflammatory bowel disease. No stricture, fistula, or obstruction. No drainable fluid collections. Mild bilateral hydronephrosis most likely due to bladder outlet obstruction. Electronically Signed: Nael Hodge MD at 0:01 EDT ,
[2022-12-26 12:41] VITALS: BP 111/64; PULSE 69; RESP 18; O2SAT 99; BMI 38.7
[2022-12-26] MEDS: 0.9% Saline Lock 10 ML Syringe IV (14:38)
[2022-12-26] MEDS: Glucagon 1 MG/ML Syringe IV (14:38)
[2022-12-26 14:56] VITALS: BP 132/85; PULSE 64; RESP 18; O2SAT 100
== END | disposition home or self-care (01) ==
LOC: MRI 12:17
PROVIDERS: PCP Internal Medicine; Referring Provider Internal Medicine Gastroenterology; Visit Provider Internal Medicine Gastroenterology
DX: K50.90 Crohn's disease, unspecified, without complications (principal)
CPT/HCPCS: 74183; 96374; A9575; A4216; J1610

== ENCOUNTER → 2023-04-09 | Outpatient (CLI) | payer BC, SELFPAY ==
[2023-04-09 10:17] LABS: Erythrocyte Sedimentation Rate 7 mm/hr (0-30)
[2023-04-09 10:20] LABS: Absolute Neutrophil Count 3.9 X10^3/uL (2.0-7.7); Basophil# 0.02 X10^3/uL; Basophil% 0.3 % (0-1); Eosinophil# 0.07 X10^3/uL; Eosinophils% 1.1 % (0-5); Hematocrit 42.1 % (37-47); Hemoglobin 13.9 g/dL (12.0-15.0); Lymphocyte % 28.7 % (19-41); Mean Corpuscular Hgb 32.2 pg (27.0-32.0); Mean Corpuscular Volume 97.5 fL (81-99); Mean Platelet Vol. 11.1 fl (6.2-12.0); Monocyte# 0.68 X10^3/uL; Monocyte% 10.3 % (0-10); NRBC Flagged by Analyzer 0 % (0-5); Neutrophil # 3.94 X10^3/uL (2.7-7.7); Neutrophil % 59.3 % (47-70); Platelet Count 270 K/mm3 (150-450); RBC Distribution Width CV 13.9 % (11.6-14.6); Red Blood Count 4.32 M/mm3 (4.2-5.4); White Blood Count 6.6 K/mm3 (4.4-11.0)
[2023-04-09 10:51] LABS: ALB/GLOB Ratio 0.9 RATIO (0.9-2.4); AST(SGOT) 14 U/L (15-37); Alanine Aminotransfer ALT/SGPT 25 U/L (13-56); Albumin, Serum 3.5 g/dL (3.2-5.0); Alkaline Phosphatase 62 U/L (45-117); Anion Gap 5 (5-15); BUN 13 mg/dL (7-18); BUN/Creat Ratio 18.5 RATIO (10-20); CRP < 2.90 mg/L (0.0-3.0); Chloride 104 mmol/L (98-107); EST Glomerular Filtration Rate 97 mL/min (>60); Est Glom Filt Rate - Afr Amer 117 mL/min (>60); Globulin 3.8 g/dL (2.2-4.2); Glucose 85 mg/dL (74-106); Potassium 3.8 mmol/L (3.5-5.1); Protein, Total 7.3 g/dL (6.4-8.2); Sodium Level 139 mmol/L (136-145)
[2023-04-16 00:07] LABS: Calprotectin, Stool 5 ug/g (0-120)
[2023-04-16 22:06] LABS: Pancreatic Elastase, Fecal 472 (>200)
== END | disposition home or self-care (01) ==
LOC: LAB 08:35
PROVIDERS: PCP Internal Medicine; Referring Provider Internal Medicine Gastroenterology; Visit Provider Internal Medicine Gastroenterology
DX: K50.90 Crohn's disease, unspecified, without complications (principal)
CPT/HCPCS: 36415; 80053; 82653; 83630; 83993; 85025; 85652; 86140

== ENCOUNTER → 2023-04-18 | Outpatient (CLI) | payer BC, SELFPAY ==
--- NOTE | 2023-04-18 12:17 | US_ITS ---
STUDY: RENAL ULTRASOUND - COMPLETE REASON FOR EXAM: Female, 42 years old. abnormal MRI TECHNIQUE: Ultrasound evaluation of the kidneys was performed with real-time and static flores-scale imaging. COMPARISON: MRI 12/26/2022 FINDINGS: RIGHT KIDNEY: Normal location of the right kidney, which is normal in size. The right kidney measures 11.2 cm. There is a normal cortex of the right kidney. The renal cortex measures 1.0 cm. There is no right renal mass or cyst. There are no right renal calculi. There is mild hydronephrosis of the right kidney. DISTAL RIGHT URETER: There is non-visualization of the distal right ureter. There is no demonstrated right ureterovesical junction calculus. There is a visualized right ureteral jet. LEFT KIDNEY: Normal location of the left kidney, which is normal in size. The left kidney measures 12.6 cm. There is a normal cortex of the left kidney. The renal cortex measures 1.3 cm. There is no left renal mass or cyst. There are no left renal calculi. There is no left hydronephrosis. DISTAL LEFT URETER: There is non-visualization of the distal left ureter. There is no demonstrated left ureterovesical junction calculus. There is a visualized left ureteral jet. AORTA: There is no elongation or tortuosity of the abdominal aorta. Aorta measures: Proximal cm. Middle cm. Distal cm. Aorta measure transversely: Proximal cm. Middle cm. Distal cm. There is no demonstrated aneurysm.. I.V.C.: The IVC is patent. BLADDER: The distended urinary bladder has a volume of 458 ml. The empty urinary bladder has a volume of 7 ml. There is a normal wall thickness of the distended urinary bladder. There is no demonstrated mass within the urinary bladder. There are no demonstrated bladder calculi. US/Kidney and Bladder IMPRESSION: Mild right hydronephrosis as seen on MRI. Electronically Signed: Eh Hamilton MD at 22:00 EST ,
== END | disposition home or self-care (01) ==
LOC: US 12:17
PROVIDERS: PCP Internal Medicine; Referring Provider Physician Assistant; Visit Provider Physician Assistant
DX: Q64.9 Congenital malformation of urinary system, unspecified (principal)
CPT/HCPCS: 76770

== ENCOUNTER → 2023-05-16 | Outpatient (CLI) | payer BC, SELFPAY ==
[2023-05-16 07:00] LABS: Erythrocyte Sedimentation Rate 17 mm/hr (0-30)
[2023-05-16 07:29] LABS: T4 Total, Thyroxin 8.7 ug/dL (4.8-13.9); Thyroid Stim Hormone (TSH) 4.34 uIU/mL (0.358-3.74)
[2023-05-16 12:15] LABS: Vitamin B12 291 pg/mL (211-911); Vitamin D,25 Hydroxy 35.4 ng/mL
[2023-05-17 14:09] LABS: ANTINUCLEAR ANTIBODIES DIRECT Negative (Negative)
[2023-05-21 00:07] LABS: Adrenocorticotropic Hormone 59.4 pg/mL (7.2-63.3); T3 Reverse 12.7 ng/dL (9.2-24.1)
== END | disposition home or self-care (01) ==
LOC: LAB 06:30
PROVIDERS: PCP Internal Medicine; Referring Provider Physician Assistant; Visit Provider Physician Assistant
DX: R53.83 Other fatigue (principal); H53.8 Other visual disturbances; R42 Dizziness and giddiness; M79.10 Myalgia, unspecified site; R25.1 Tremor, unspecified
CPT/HCPCS: 36415; 82024; 82306; 82533; 82607; 82746; 84436; 84443; 84482; 85652; 86038; 86225; 86235

== ENCOUNTER → 2023-08-08 | Outpatient (CLI) | payer BC, SELFPAY ==
[2023-08-08 13:11] LABS: T4 Free Direct 0.95 ng/dL (0.76-1.46); Thyroid Stim Hormone (TSH) 1.68 uIU/mL (0.358-3.74)
== END | disposition home or self-care (01) ==
LOC: BIMLAB 09:21
PROVIDERS: PCP Internal Medicine; Referring Provider Physician Assistant; Visit Provider Physician Assistant
DX: E03.8 Other specified hypothyroidism (principal)
CPT/HCPCS: 36415; 84439; 84443

== ENCOUNTER → 2023-09-27 | Outpatient (CLI) | payer BC, SELFPAY ==
--- NOTE | 2023-09-27 12:09 | EKG12_ITS ---
Test Reason : PALP Blood Pressure : / mmHG Vent. Rate : 078 BPM Atrial Rate : 078 BPM P-R Int : 128 ms QRS Dur : 076 ms QT Int : 372 ms P-R-T Axes : 030 062 044 degrees QTc Int : 424 ms Normal sinus rhythm Normal ECG Confirmed by Dallas Loya ([id number]), city editor HEDY HANEY ([id number]) on 09/28/2023 8:48:13 AM Referred By: Amrit Grace Confirmed By:Dallas Loya
== END | disposition home or self-care (01) ==
LOC: PSN 12:08
PROVIDERS: PCP Internal Medicine; Referring Provider Psychiatry & Neurology Neurology; Visit Provider Psychiatry & Neurology Neurology
DX: R00.0 Tachycardia, unspecified (principal); R42 Dizziness and giddiness; R00.2 Palpitations
CPT/HCPCS: 93005

== ENCOUNTER → 2023-10-12 | Outpatient (CLI) | payer BC, SELFPAY | END | disposition home or self-care (01) | PROVIDERS: PCP Internal Medicine; Referring Provider Psychiatry & Neurology Neurology; Visit Provider Psychiatry & Neurology Neurology | DX: G47.10 Hypersomnia, unspecified (principal) | CPT/HCPCS: 95806 ==